=== PATIENT | female | born 1945 | race Caucasian/White ===

== ENCOUNTER 2016-11-27 20:22 | Emergency (ER) | payer OTHER ==
[~2016-11-27] VITALS: Ht 162.6 cm; Wt 89.8 kg
[~2016-11-27 20:22] MED LIST: ADVIN25050 INH; ALBUAER2 INH; LISI-461 PO; PRLSR20 PO; [UNRECOGNIZED DRUG - OTHER] PO
[2016-11-27 20:29] VITALS: TEMP 37; Ht 162.6 cm; Wt 89.8 kg
[2016-11-27] MEDS ORDERED: ATOR-22 PO (20:57)
[2016-11-27] MEDS ORDERED: NVLGI/PEN SQ (20:57)
[2016-11-27] MEDS ORDERED: INSDGIPEN SC (20:57)
--- NOTE | 2016-11-27 22:37 | DIAGNOSTIC IMAGING REPORT ---
CHEST ONE VIEW PORTABLE CLINICAL HISTORY: Fever. Sepsis. COMPARISON STUDY: Chest radiograph September 06, 2012. FINDINGS: No pneumothorax or pleural effusion is present. There is no evidence of pulmonary edema. There is an old fracture of the right eighth rib. Mild left lower lung opacity likely reflects atelectasis. Cardiac size is normal. Mediastinal contours are normal. IMPRESSION: 1. No acute cardiopulmonary findings. 2. Mild left lower lung opacity which favors atelectasis. Electronically signed by: Blanco Mckee M.D. 11/27/2016 10:35 PM Dictated Date/Time: 11/27/2016 10:34 PM
[2016-11-27 22:59] LABS: BASO % 0.4 %; BASO ABS # 0.04 K/uL (0-0.2); COMPLETE YES; EOS % 4.4 %; IG% 0.2 %; LYMPH % 32.6 %; LYMPH ABS # 3.26 K/uL (1.2-3.4); MEAN CELL VOLUME 84.5 fL (80-100); MEAN CORPUSCULAR HEMOGLOBIN 28.6 pg (25-34); MEAN CORPUSCULAR HGB CONC 33.9 g/dl (32-36); MEAN PLATELET VOLUME 9.7 fL (7.4-10.4); MONO % 6.3 %; NEUT % 56.1 %; PLATELET COUNT 261 K/uL (130-400); RED BLOOD COUNT 4.26 M/uL (4.2-5.4); WHITE BLOOD COUNT 9.99 K/uL (4.8-10.8)
[2016-11-27 23:04] LABS: PARTIAL THROMBOPLASTIN RATIO 1.1; PROTHROMBIN TIME (PATIENT) 10.4 SECONDS (9.0-12.0)
[2016-11-27 23:06] LABS: URINE APPEARANCE CLEAR (CLEAR); URINE BILIRUBIN NEG (NEG); URINE COLOR YELLOW; URINE EPITHELIAL CELL AUTO >30 /lpf (0-5); URINE NITRITE NEG (NEG); URINE SPECIFIC GRAVITY 1.014 (1.000-1.030); UROBILINOGEN NEG (NEG)
[2016-11-27 23:15] LABS: ALT/SGPT 23 U/L (12-78); BLOOD UREA NITROGEN 16 mg/dl (7-18); BUN/CREATININE RATIO 23.3 (10-20); CALCIUM 9.1 mg/dl (8.5-10.1); CARBON DIOXIDE 28 mmol/L (21-32); CHLORIDE 101 mmol/L (98-107); CREATININE 0.69 mg/dl (0.60-1.20); GLUCOSE 146 mg/dl (70-99); SODIUM 136 mmol/L (136-145)
[2016-11-27 23:20] LABS: ALKALINE PHOSPHATASE 92 U/L (45-117); AST/SGOT 13 U/L (15-37); CKMB/CK RATIO 5.2 (0-3.0)
[2016-11-27 23:25] LABS: MANUAL MICROSCOPIC REQUIRED? NO; REVIEW REQ? YES
--- NOTE | 2016-11-28 00:18 | EMERGENCY ROOM VISIT NOTE ---
History Report prepared by Josiahibterra: Elton Wright Under the Supervision of: Dr. Brandan Khna D.O. First contact with patient: 22:15 Chief Complaint: ARM PAIN Stated Complaint: RT SIDE ARM AND NECK PAIN, BASE OF SHOULDER PAIN History of Present Illness The patient is a 70 year old female who presents to the Emergency Room with complaints of constant right arm pain beginning a few hours ago. She states that the pain radiates down her arm as well as up into her shoulder and neck. She also complains of a cough. The patient denies any headaches, cold-symptoms, shortness of breath, or chest pain. She denies any known trauma or increased workload. Source of History: patient Onset: a few hours ago Position: arm (right) Timing: constant Associated Symptoms: + cough, No SOB, No chest pain, No headache Note: The patient has pain radiating down her arm as well as up to her shoulder and neck. Review of Systems See HPI for pertinent positives & negatives. A total of 10 systems reviewed and were otherwise negative. Past Medical & Surgical Medical Problems: (1) Diabetes Surgical Problems: (1) History of cholecystectomy Family History No pertinent family history stated. Social History Smoking Status: Never Smoker Alcohol Use: none Drug Use: none Marital Status: Occupation Status: retired Current/Historical Medications Scheduled Albuterol (Ventolin Hfa), 2 PUFFS INH PRN Atorvastatin (Lipitor), 20 MG PO QPM Insulin Aspart (Novolog Flexpen), 15-20 UNITS SQ TIDM Insulin Glargine (Lantus Solostar), 25 UNITS SC QPM Lisinopril (Zestril), 10 MG PO DAILY Allergies Coded Allergies: Doxycycline (Unverified Allergy, Mild, ASTHMA ATTACK, HIVES, 11/27/16) Penicillins (Verified Allergy, Unknown, 11/27/16) Sulfa Drugs (Verified Allergy, Unknown, 11/27/16) Physical Exam Vital Signs Date Time Temp Pulse Resp B/P Pulse Ox O2 Delivery O2 Flow Rate FiO2 11/28/16 00:25 71 18 141/75 98 Room Air 11/27/16 23:55 74 18 148/63 97 Room Air 11/27/16 22:48 68 18 151/81 97 Room Air 11/27/16 21:28 72 11/27/16 20:29 37.0 98 18 150/83 96 Room Air Physical Exam CONSTITUTIONAL/VITAL SIGNS: Reviewed / noted above. GENERAL: Non-toxic in appearance. INTEGUMENTARY: Warm, dry, and [place]. HEAD: Normocephalic. EYES: without scleral icterus or trauma. ENT/OROPHARYNX: clear and moist. LYMPHADENOPATHY/NECK: Is supple without lymphadenopathy or meningismus. RESPIRATORY: Lungs clear and equal. CARDIOVASCULAR: Regular rate and rhythm. GI/ABDOMEN: Soft and nontender. No organomegaly or pulsatile mass. No rebound or guarding. Normal bowel sounds. EXTREMITIES: Warm and well perfused. BACK: No CVA tenderness. NEUROLOGICAL: Intact without focal deficits. PSYCHIATRIC: normal affect. MUSCULOSKELETAL: Normally developed with good muscle tone. Mild tenderness with palpation of the right shoulder and trapezius area. Medical Decision & Procedures ER Provider Diagnostic Interpretation: X ray results and stated below per my interpretation and radiology interpretation. CHEST ONE VIEW PORTABLE FINDINGS: No pneumothorax or pleural effusion is present. There is no evidence of pulmonary edema. There is an old fracture of the right eighth rib. Mild left lower lung opacity likely reflects atelectasis. Cardiac size is normal. Mediastinal contours are normal. IMPRESSION: 1. No acute cardiopulmonary findings. 2. Mild left lower lung opacity which favors atelectasis. Electronically signed by: Blanco Mckee M.D. Laboratory Results 11/27/16 22:44 Red Blood Count 4.26, Mean Corpuscular Volume 84.5, Mean Corpuscular Hemoglobin 28.6, Mean Corpuscular Hemoglobin Concent 33.9, Mean Platelet Volume 9.7, Neutrophils (%) (Auto) 56.1, Lymphocytes (%) (Auto) 32.6, Monocytes (%) (Auto) 6.3, Eosinophils (%) (Auto) 4.4, Basophils (%) (Auto) 0.4, Neutrophils # (Auto) 5.60, Lymphocytes # (Auto) 3.26, Monocytes # (Auto) 0.63, Eosinophils # (Auto) 0.44, Basophils # (Auto) 0.04 11/27/16 22:44 Test 11/27/16 22:44 11/27/16 22:48 White Blood Count 9.99 K/uL (4.8-10.8) Red Blood Count 4.26 M/uL (4.2-5.4) Hemoglobin 12.2 g/dL (12.0-16.0) Hematocrit 36.0 % (37-47) Mean Corpuscular Volume 84.5 fL (80-100) Mean Corpuscular Hemoglobin 28.6 pg (25-34) Mean Corpuscular Hemoglobin Concent 33.9 g/dl (32-36) Platelet Count 261 K/uL (130-400) Mean Platelet Volume 9.7 fL (7.4-10.4) Neutrophils (%) (Auto) 56.1 % Lymphocytes (%) (Auto) 32.6 % Monocytes (%) (Auto) 6.3 % Eosinophils (%) (Auto) 4.4 % Basophils (%) (Auto) 0.4 % Neutrophils # (Auto) 5.60 K/uL (1.4-6.5) Lymphocytes # (Auto) 3.26 K/uL (1.2-3.4) Monocytes # (Auto) 0.63 K/uL (0.11-0.59) Eosinophils # (Auto) 0.44 K/uL (0-0.5) Basophils # (Auto) 0.04 K/uL (0-0.2) RDW Standard Deviation 42.9 fL (36.4-46.3) RDW Coefficient of Variation 14.0 % (11.5-14.5) Immature Granulocyte % (Auto) 0.2 % Immature Granulocyte # (Auto) 0.02 K/uL (0.00-0.02) Prothrombin Time 10.4 SECONDS (9.0-12.0) Prothromb Time International Ratio 1.0 (0.9-1.1) Activated Partial Thromboplast Time 29.6 SECONDS (21.0-31.0) Partial Thromboplastin Ratio 1.1 Anion Gap 7.0 mmol/L (3-11) Est Creatinine Clear Calc Drug Dose 80.0 ml/min Estimated GFR () 100.8 Estimated GFR (Non- 87.0 BUN/Creatinine Ratio 23.3 (10-20) Calcium Level 9.1 mg/dl (8.5-10.1) Total Bilirubin 0.4 mg/dl (0.2-1) Direct Bilirubin 0.1 mg/dl (0-0.2) Aspartate Amino Transf (AST/SGOT) 13 U/L (15-37) Alanine Aminotransferase (ALT/SGPT) 23 U/L (12-78) Alkaline Phosphatase 92 U/L (45-117) Total Creatine Kinase 33 U/L (26-192) Creatine Kinase MB 1.7 ng/ml (0.5-3.6) Creatine Kinase MB Ratio 5.2 (0-3.0) Troponin I < 0.015 ng/ml (0-0.045) Total Protein 7.4 gm/dl (6.4-8.2) Albumin 3.5 gm/dl (3.4-5.0) Lipase 224 U/L (73-393) Urine Color YELLOW Urine Appearance CLEAR (CLEAR) Urine pH 5.0 (4.5-7.5) Urine Specific [place] 1.014 (1.000-1.030) Urine Protein NEG (NEG) Urine Glucose (UA) NEG (NEG) Urine Ketones NEG (NEG) Urine Occult Blood NEG (NEG) Urine Nitrite NEG (NEG) Urine Bilirubin NEG (NEG) Urine Urobilinogen NEG (NEG) Urine Leukocyte Esterase LARGE (NEG) Urine WBC (Auto) >30 /hpf (0-5) Urine RBC (Auto) 0-4 /hpf (0-4) Urine Hyaline Casts (Auto) 1-5 /lpf (0-5) Urine Epithelial Cells (Auto) >30 /lpf (0-5) Urine Bacteria (Auto) NEG (NEG) Urine Renal Epithelial Cells 5-10 /lpf (0-5) Laboratory results as stated above per my review. ECG Indication: other (arm pain) Rate (beats per minute): 96 Rhythm: normal sinus Findings: no acute ischemic change, no ectopy Comparison ECG Date: March 2012 Change: no significant change ED Course 2217: Previous medical records were reviewed. The patient was evaluated in room B8. A complete history and physical examination was performed. 0020: On reevaluation, the patient is resting comfortably. I discussed the results and findings with the patient. She verbalized agreement of the treatment plan. The patient was discharged home. Medical Decision The differential was considered includes acute myocardial infarction, acute coronary syndrome, myocarditis, pericarditis, pericardial effusions/tamponade, esophageal perforation, thoracic aortic dissection, pulmonary embolism, pneumonia, pneumothorax, pancreatitis, shingles, acute cholecystitis, perforated abdominal viscus. This is a 70-year-old female who presents to the ED with a chief complaint of right shoulder and neck pain. The patient states that her symptoms started earlier this evening. She denies any specific trauma or overuse. She is right- handed. She denies any shortness of breath or chest pains. Her vital signs are normal. Her physical exam revealed some mild tenderness to palpation the right shoulder and right trapezius muscle near the shoulder. She was concerned about her heart. She states that she lives alone. Chest x-ray did not show acute disease. Urine did not show infection. A CMP was unremarkable. Troponin is negative. CBC is normal. The patient was told the results of the test. She is felt to be stable for discharge and outpatient follow-up. Impression Primary Impression: Right shoulder pain Scribe Attestation The scribe's documentation has been prepared under my direction and personally reviewed by me in its entirety. I confirm that the note above accurately reflects all work, treatment, procedures, and medical decision making performed by me. Departure Information Dispostion Home / Self-Care Referrals Kaylee Osorio D.O. (PCP) Patient Instructions My [facility] Additional Instructions The test results did not show any abnormalities with regards to your lungs are heart. Anticipate improvement of your symptoms with a little time. Take Tylenol / Motrin for pain as needed. Return for any concerns. If symptoms persist, see your doctor for recheck.
[2016-11-28 00:25] VITALS: BP 141/75; PULSE 71; O2SAT 98
== END 2016-11-28 00:40 | disposition home or self-care (01) ==
LOC: C.EDB 20:23
DX: M25.511 Pain in right shoulder (principal); E11.9 Type 2 diabetes mellitus without complications; Z90.49 Acquired absence of other specified parts of digestive tract; Z79.4 Long term (current) use of insulin; Z88.0 Allergy status to penicillin; Z88.2 Allergy status to sulfonamides

== ENCOUNTER 2021-08-29 23:12 | Observation (INO) ==
[2021-08-29] MEDS ORDERED: FAMOTIDINE 20MG/5ML IV PUSH IV STA (23:38)
[2021-08-29] MEDS ORDERED: ONDANSETRON INJ 2 MG/ML 2 ML VIAL IV STA (23:38)
[2021-08-29] MEDS ORDERED: SODIUM CHLORIDE 0.9% 1000ML 500 ML IV ONE (23:38)
--- NOTE | 2021-08-29 23:50 | Emergency Department Note ---
History of Present Illness General Chief complaint: Shortness of Breath/Dyspnea Stated complaint: SOB,NAUSEA,SWEATS COVID+ x 14 days Time Seen by Provider: 08/29/21 23:30 History of Present Illness This 75-year-old who had Covid 2 weeks ago presents to the ER complaining of nausea, chills and generalized illness to think she is having a heart attack tonight with shortness of breath who is unvaccinated for Covid and received monoclonal antibodies Location: Generalized Quality: Nauseated Severity: Moderate Duration: Today Timing: Today Context: Patient was concerned and came in Modifying factors: better with rest; worse with activity Patient states she started to feel ill and then had episode of diarrhea. Patient is unvaccinated for Covid. She states she felt better 2 days prior and now feels sick again. Patient complains of dyspnea, nausea and generalized illness. She states she does not feel like it is Covid anymore. Home Medications Medication Instructions Recorded Confirmed Type albuterol sulfate 90 mcg/actuation 2 puffs INH Q6H PRN #6.7 gm 04/26/19 08/30/21 Rx aerosol inhaler (ProAir HFA) omalizumab 150 mg subcutaneous 300 mg SQ Q4WK ea 05/09/19 08/30/21 History solution (Xolair) BD Insulin Syringe Ultra-Fine 0.5 #100 ea NS 01/03/20 02/17/21 Rx mL 31 gauge x 5/16" (insulin syringe-needle U-100) pen needle, diabetic 31 gauge x #360 ea 01/21/20 05/27/21 Rx 3/16" (BD Ultra-Fine Mini Pen Needle) lisinopril 10 mg tablet 10 mg PO DAILY #90 tab 04/10/20 08/30/21 Rx lancets 32 gauge #300 ea 04/27/20 05/27/21 Rx blood sugar diagnostic (FreeStyle #400 ea 07/13/20 05/27/21 Rx Lite Strips) insulin glargine 100 unit/mL (3 28 unit SQ DAILY #2 box 05/28/21 08/30/21 Rx mL) subcutaneous pen (Basaglar KwikPen U-100 Insulin) metoprolol succinate 25 mg 25 mg PO DAILY #90 tab 06/29/21 08/30/21 Rx tablet,extended release 24 hr rosuvastatin 5 mg tablet (Crestor) 5 mg PO DAILY #90 tab 06/29/21 08/30/21 Rx cefdinir 300 mg capsule 300 mg PO BID 7 Days #14 cap 08/30/21 Rx celecoxib 200 mg capsule 200 mg PO DAILY 08/30/21 08/30/21 History cholecalciferol (vitamin D3) 25 50 - 75 mcg PO DAILY 08/30/21 08/30/21 History mcg (1,000 unit) capsule (Vitamin D3) cinnamon bark 500 mg capsule 2,000 mg PO DAILY 08/30/21 08/30/21 History (Cinnamon) clobetasol 0.05 % topical ointment 1 appln TOP BID PRN 08/30/21 08/30/21 History cranberry 500 mg capsule 1,500 mg PO DAILY 08/30/21 08/30/21 History diphenoxylate-atropine 2.5 1 tab PO DIRECTED PRN 08/30/21 08/30/21 History mg-0.025 mg tablet (Lomotil) estradiol 4 mcg vaginal insert 4 mcg VAGINAL DIRECTED PRN 08/30/21 08/30/21 History (Imvexxy Maintenance Pack) insulin aspart U-100 100 unit/mL 0 unit SQ DIRECTED 08/30/21 08/30/21 History (3 mL) subcutaneous pen (Novolog Flexpen U-100 Insulin aspart) vitamin B complex 1 - 2 tab PO DAILY 08/30/21 08/30/21 History zinc 50 mg tablet 50 mg PO DAILY 08/30/21 08/30/21 History Allergies Allergy/AdvReac Type Severity Reaction Status Date / Time doxycycline Allergy Severe ASTHMA Verified 08/30/21 01:25 ATTACK, HIVES Sulfa (Sulfonamide Allergy Severe SWELLING Verified 08/30/21 01:25 Antibiotics) AND REDNESS, EYES SWELLED latex Allergy Intermediate SKIN Verified 08/30/21 01:25 IRRITATION-RASH atorvastatin AdvReac Intermediate Muscle Pain Verified 08/30/21 01:25 metformin AdvReac Intermediate Gastrointestinal Verified 08/30/21 01:19 Upset Past Med/Surg History Medical History Aortic valve sclerosis CAD (coronary artery disease) Dyslipidemia Hypertension Obstructive airway disease Type 2 diabetes mellitus Surgical History History of appendectomy History of cholecystectomy History of knee surgery History of lumpectomy Family History Father Asthma Bronchitis Diabetes Coronary heart disease Mother Arthritis Cancer Coronary heart disease Hypertension Stroke Social History Smoking Status: Never smoker Hx Alcohol Use: No Preferred Language: Indian marital status: Feels Safe at Home: Yes Review of Systems A total of 10 systems reviewed and were otherwise negative Physical Exam Vital Signs Vital Signs - 24 hr 08/29/21 23:20 08/29/21 23:45 08/29/21 23:46 Temperature 36.4 C L Temperature Source Oral Pulse Rate 66 Pulse Rate [Apical] Respiratory Rate 18 Respiratory Effort / Characteristics Non-Labored Spontaneous Respiratory Depth Normal Blood Pressure 147/68 H Blood Pressure [Right Arm] Blood Pressure Mean 94 Blood Pressure Mean [Right Arm] Blood Pressure Position Sitting Pulse Oximetry 96 96 Oxygen Delivery Method Room Air Room Air Room Air Sepsis Recent Fever Within 48 Hours No Sepsis New/Unexplained Change in Mental Status N/A Sepsis Action Taken by Nursing No Action Required 08/29/21 23:50 08/30/21 00:13 08/30/21 01:44 Temperature Temperature Source Pulse Rate Pulse Rate [Apical] 73 79 Respiratory Rate 22 19 Respiratory Effort / Characteristics Non-Labored Spontaneous Respiratory Depth Blood Pressure Blood Pressure [Right Arm] 130/51 L 151/93 H Blood Pressure Mean Blood Pressure Mean [Right Arm] 77 112 Blood Pressure Position Pulse Oximetry 97 98 97 Oxygen Delivery Method Room Air Room Air Room Air Sepsis Recent Fever Within 48 Hours Sepsis New/Unexplained Change in Mental Status Sepsis Action Taken by Nursing 08/30/21 02:30 Temperature Temperature Source Pulse Rate 71 Pulse Rate [Apical] Respiratory Rate 24 Respiratory Effort / Characteristics Respiratory Depth Blood Pressure 143/88 H Blood Pressure [Right Arm] Blood Pressure Mean 106 Blood Pressure Mean [Right Arm] Blood Pressure Position Pulse Oximetry 95 Oxygen Delivery Method Room Air Sepsis Recent Fever Within 48 Hours Sepsis New/Unexplained Change in Mental Status Sepsis Action Taken by Nursing VITALS: Vitals are noted on the nurse's note and reviewed by myself. Vital signs stable. GENERAL: White female speaking in full sentences, in no acute distress, nond iaphoretic, well-developed well-nourished. SKIN: The skin was without rashes, erythema, edema, or bruising. There is no tenting of the skin. Capillary reflex less than 2 seconds. HEAD: Normocephalic atraumatic. EARS: External auditory canals clear, EYES: Pupils equal round and reactive to light and accommodation. Conjunctivae without injection, sclerae without icterus. Extraocular movements intact. NOSE: Patent, turbinates without inflammation or discharge. MOUTH: Mucous membranes moist. Pharynx without erythema or exudate. Uvula midline. Airway patent. Tongue does not deviate. NECK: Supple without nuchal rigidity. No lymphadenopathy. No thyromegaly. Cervical spine is nontender. No JVD. HEART: Regular rate and rhythm LUNGS: Clear to auscultation bilaterally without wheezes, rales or rhonchi. No retractions or accessory muscle use. ABDOMEN: Positive bowel sounds x 4. Normal tympanic percussion. Soft, nontender, without masses or organomegaly. Regalado sign negative. No guarding or rebound tenderness. No CVA tenderness MUSCULOSKELETAL: No muscle atrophy, erythema, or edema noted. NEURO: Patient was alert and oriented to person place and time. Normal sens ation to light and sharp touch. No focal neurological deficits. Course Administered Medications Discontinued Medications Famotidine (Famotidine 20mg/5ml Iv Push) 20 mg IV ONE STA Stop: 08/29/21 23:39 Last Admin: 08/30/21 00:11 Dose: 20 mg Documented by: [id number] Sodium Chloride (Nss 1000ml) 500 mls @ 999 mls/hr IV .Q31M ONE Stop: 08/30/21 00:08 Last Infusion: 08/30/21 01:22 Dose: 0 mls/hr Documented by: [id number] Admin: 08/30/21 00:13 Dose: 999 mls/hr Documented by: [id number] Ceftriaxone Sodium (Rocephin) 2,000 mg in 70 mls @ 140 mls/hr IV NOW STA Stop: 08/30/21 02:54 Last Infusion: 08/30/21 03:03 Dose: 0 mls/hr Documented by: [id number] Admin: 08/30/21 02:32 Dose: 140 mls/hr Documented by: [id number] Ioversol (Optiray 320 125ml) 119 ml IV ONCE ONE Stop: 08/30/21 01:14 Last Admin: 08/30/21 01:14 Dose: 119 ml Documented by: [id number] Ondansetron HCl (Ondansetron Inj 2 Mg/Ml 2 Ml Vial) 4 mg IV NOW STA Stop: 08/29/21 23:39 Last Admin: 08/30/21 00:13 Dose: Not Given Documented by: [id number] Medical Decision Making Medical Records Attestation: I reviewed the patient's medical records. Home Medications Current Medication List: was personally reviewed by [email or web address] Laboratory Data Attestation: I reviewed the patient's lab results. Result diagrams: 08/30/21 00:10 08/30/21 00:10 Lab Results 08/30/21 08/30/21 08/30/21 Range/Units 00:10 00:10 00:10 WBC 8.29 (4.8-10.8) K/uL RBC 4.25 (4.2-5.4) M/uL Hgb 12.5 (12.0-16.0) g/dL Hct 38.3 (37-47) % MCV 90.1 (80-100) fL MCH 29.4 (25-34) pg MCHC 32.6 (32-36) g/dL RDW Std Deviation 42.9 (36.4-46.3) fL RDW Coeff of Marek 13.1 (11.5-14.5) % Plt Count 242 (130-400) K/uL MPV 10.4 (7.4-10.4) fL Immature Gran % (Auto) 0.2 % Neut % (Auto) 67.6 % Lymph % (Auto) 22.6 % Pender % (Auto) 8.0 % Eos % (Auto) 1.2 % Baso % (Auto) 0.4 % Neut # (Auto) 5.61 (1.4-6.5) K/uL Lymph # (Auto) 1.87 (1.2-3.4) K/uL Pender # (Auto) 0.66 H (0.11-0.59) K/uL Eos # (Auto) 0.10 (0-0.5) K/uL Baso # (Auto) 0.03 (0-0.2) K/uL Immature Gran # (Auto) 0.02 (0.00-0.02) K/uL Sodium 142 (136-145) mmol/L Potassium 4.2 (3.5-5.1) mmol/L Chloride 107 (98-107) mmol/L Carbon Dioxide 26 (21-32) mmol/L Anion Gap 10.0 (3-11) BUN 19 H (7-18) mg/dl Creatinine 1.08 (0.6-1.2) mg/dl Est Cr Clr Drug Dosing 47.1 ml/min Est GFR ( Amer) 57.3 ml/min Est GFR (Non-Af Amer) 49.5 ml/min BUN/Creatinine Ratio 17.4 (10-20) Glucose 200 H (70-99) mg/dl Lactate (0.4-2.0) mmol/L Calcium 9.3 (8.5-10.1) mg/dl Magnesium 2.1 (1.8-2.4) mg/dl Total Bilirubin 0.4 (0.2-1) mg/dl AST 66 H (15-37) U/L ALT 67 (12-78) U/L Alkaline Phosphatase 93 (45-117) U/L Troponin I < 0.015 (0-0.045) ng/ml NT-Pro-B Natriuret Pep 314 (0-1800) pg/ml Total Protein 7.7 (6.4-8.2) gm/dl Albumin 3.5 (3.4-5.0) gm/dl Globulin 4.2 H (2.5-4.0) gm/dl Albumin/Globulin Ratio 0.8 L (0.9-2) Procalcitonin < 0.05 (0-0.5) ng/ml Urine Color Urine Appearance (Clear) Urine pH (4.5-7.5) Ur Specific [place] (1.000-1.030) Urine Protein (Negative) Urine Glucose (UA) (Negative) Urine Ketones (Negative) Urine Blood (Negative) Urine Nitrite (Negative) Urine Bilirubin (Negative) Urine Urobilinogen (Negative) Ur Leukocyte Esterase (Negative) Urine WBC (Auto) (0-5) /hpf Urine RBC (Auto) (0-4) /hpf U Hyaline Cast (Auto) (0-5) /lpf U Epithel Cells (Auto) (0-5) /lpf Urine Bacteria (Auto) (Negative) 08/30/21 08/30/21 08/30/21 Range/Units 00:10 01:40 02:00 WBC (4.8-10.8) K/uL RBC (4.2-5.4) M/uL Hgb (12.0-16.0) g/dL Hct (37-47) % MCV (80-100) fL MCH (25-34) pg MCHC (32-36) g/dL RDW Std Deviation (36.4-46.3) fL RDW Coeff of Marek (11.5-14.5) % Plt Count (130-400) K/uL MPV (7.4-10.4) fL Immature Gran % (Auto) % Neut % (Auto) % Lymph % (Auto) % Pender % (Auto) % Eos % (Auto) % Baso % (Auto) % Neut # (Auto) (1.4-6.5) K/uL Lymph # (Auto) (1.2-3.4) K/uL Pender # (Auto) (0.11-0.59) K/uL Eos # (Auto) (0-0.5) K/uL Baso # (Auto) (0-0.2) K/uL Immature Gran # (Auto) (0.00-0.02) K/uL Sodium (136-145) mmol/L Potassium (3.5-5.1) mmol/L Chloride (98-107) mmol/L Carbon Dioxide (21-32) mmol/L Anion Gap (3-11) BUN (7-18) mg/dl Creatinine (0.6-1.2) mg/dl Est Cr Clr Drug Dosing ml/min Est GFR ( Amer) ml/min Est GFR (Non-Af Amer) ml/min BUN/Creatinine Ratio (10-20) Glucose (70-99) mg/dl Lactate 2.2 H* 1.4 (0.4-2.0) mmol/L Calcium (8.5-10.1) mg/dl Magnesium (1.8-2.4) mg/dl Total Bilirubin (0.2-1) mg/dl AST (15-37) U/L ALT (12-78) U/L Alkaline Phosphatase (45-117) U/L Troponin I (0-0.045) ng/ml NT-Pro-B Natriuret Pep (0-1800) pg/ml Total Protein (6.4-8.2) gm/dl Albumin (3.4-5.0) gm/dl Globulin (2.5-4.0) gm/dl Albumin/Globulin Ratio (0.9-2) Procalcitonin (0-0.5) ng/ml Urine Color Yellow Urine Appearance Clear (Clear) Urine pH 7.0 (4.5-7.5) Ur Specific [place] 1.017 (1.000-1.030) Urine Protein 2+ H (Negative) Urine Glucose (UA) Trace H (Negative) Urine Ketones Negative (Negative) Urine Blood Negative (Negative) Urine Nitrite Negative (Negative) Urine Bilirubin Negative (Negative) Urine Urobilinogen Negative (Negative) Ur Leukocyte Esterase 1+ H (Negative) Urine WBC (Auto) >30 H (0-5) /hpf Urine RBC (Auto) 0-4 (0-4) /hpf U Hyaline Cast (Auto) 10-30 H (0-5) /lpf U Epithel Cells (Auto) 20-30 H (0-5) /lpf Urine Bacteria (Auto) 4+ H (Negative) Imaging Data Attestation: I personally reviewed and interpreted this imaging study as follows: MDM Narrative Prior records/ancillary studies reviewed and summarized above. Nursing notes reviewed. Additional history obtained from nursing. The patient's history was concerning for nausea and generalized illness. Differential diagnosis: Etiologies such as metabolic, infection, hypo/hyperglycemia, electrolyte abnormalities, cardiac sources, intracerebral event, toxicologic, neurologic, as well as others were entertained. Physical examination: As above. ER treatment provided: IV Lock An order was placed for continuous cardiac monitoring. The monitor shows a rate of 60-100 with a sinus rhythm. IV fluids, Zofran, Pepcid On reassessment the patient felt better. Diagnostics interpretation by me: ECG: Ordered for weakness EKG: Normal sinus, left axis, right bundle, no new ST-T wave changes. Impression left axis deviation right bundle branch block sinus rhythm int erpreted by myself I think arrhythmia is unlikely. EKG shows no interval abnormalities such as QT prolongation or WPW. There are no findings to suggest Brugada syndrome. Cardiac monitoring in the emergency department reveals no tachycardic or bradycardic dysrhythmia. Hypertrophic cardiomyopathy was considered but there are no clear historical elements pointing toward this. EKG is not suggestive. The QRS voltage is not extremely large and there are no suggestive Q waves. The labs revealed initial lactic slightly elevated, repeat is improved urine concerning for infection sent for culture. No prior urine culture for review Positive Covid from the other day Imaging studies: CTA CHEST: No pulmonary embolus. No aortic aneurysm or dissection. Interstitial prominence is concerning for pulmonary edema. The lungs are otherwise clear. Heart size is normal. No pathologically enlarged lymph nodes. No fracture. Radiologist: Shena Chacon MD Consultation: A consultation was placed with the hospitalist. The case was discussed and diagnostics were reviewed. The patient was evaluated in the ER for further treatment. Exam and history seem consistent with UTI and pulmonary edema with ongoing covid. She was given Rocephin. The pulmonary edema is new per the patient. Nothing in chart review. Patient is agreeable to treatment plan admission. Medicine was consulted. By the evaluation outlined above emergent etiologies such as electrolyte abnormalities, intracerebral event, toxologic, neurologic, abnormalities blood glucose, metabolic, as well as others were deemed relatively unlikely. The pt informed about the findings as listed above. All questions were answered and pleased with the treatment. The chart was completed utilizing [employer] Speech voice recognition software. Grammatical errors, random word insertions, pronoun errors, and incomplete sentences are an occassional consequence of this system due to software limitations, ambient noise, and hardware issues. Any formal questions or c oncerns about the content, text, or information contained within the body of this dictation should be directly addressed to the physician office services assistant for clarification. Impression & Plan Acute UTI, Pulmonary edema Discharge Plan Visit Data Chief Complaint: Shortness of Breath/Dyspnea Stated Complaint: SOB,NAUSEA,SWEATS COVID+ x 14 days ED Provider: Sabi Martinez ED Midlevel Provider: Tanvi Auguste Discharge Problem: Acute UTI, Pulmonary edema Patient Disposition: Admitted As Inpatient Condition: Good Discharge Instructions Activity Restrictions/Additional Instructions: Forms Stand Alone Forms: [employer] Prescriptions Prescriptions: New cefdinir 300 mg capsule 300 mg PO BID 7 Days Qty: 14 RF: 0 No Action albuterol sulfate [ProAir HFA] 90 mcg/actuation HFA aerosol inhaler 2 puffs INH Q6H PRN (Reason: shortness of breath or wheezing) Qty: 6.7 RF: 0 (DME) insulin syringe-needle U-100 [BD Insulin Syringe Ultra-Fine] 0.5 mL 31 gauge x 5/16" syringe See Rx Instructions .ROUTE .MEDSUPPLY Qty: 100 RF: 3 (DME) pen needle, diabetic [BD Ultra-Fine Mini Pen Needle] 31 gauge x 3/16" needle See Rx Instructions .ROUTE .MEDSUPPLY Qty: 360 RF: 3 lisinopril 10 mg tablet 10 mg PO DAILY Qty: 90 RF: 3 (DME) lancets 32 gauge misc See Rx Instructions .ROUTE .MEDSUPPLY Qty: 300 RF: 3 (DME) FreeStyle Lite Strips Strip See Dose Instructions .ROUTE .MEDSUPPLY Qty: 400 RF: 3 metoprolol succinate 25 mg tablet extended release 24 hr 25 mg PO DAILY Qty: 90 RF: 3 rosuvastatin [Crestor] 5 mg tablet 5 mg PO DAILY Qty: 90 RF: 3 Xolair 150 mg recon soln 300 mg SQ Q4WK RF: 0 Basaglar KwikPen U-100 Insulin 100 unit/mL (3 mL) insulin pen 28 unit SQ DAILY Qty: 2 RF: 3 diphenoxylate-atropine [Lomotil] 2.5-0.025 mg Tablet 1 tab PO DIRECTED PRN (Reason: Diarrhea) RF: 0 vitamin B complex [Super B Complex] Tablet 1 - 2 tab PO DAILY RF: 0 zinc 50 mg Tablet 50 mg PO DAILY RF: 0 cranberry 500 mg Capsule 1,500 mg PO DAILY RF: 0 cholecalciferol (vitamin D3) [Vitamin D3] 25 mcg (1,000 unit) Capsule 50 - 75 mcg PO DAILY RF: 0 cinnamon bark [Cinnamon] 500 mg Capsule 2,000 mg PO DAILY RF: 0 celecoxib 200 mg capsule 200 mg PO DAILY RF: 0 clobetasol 0.05 % ointment 1 appln TOP BID PRN (Reason: SKIN IRRITATIONS) RF: 0 insulin aspart U-100 [Novolog Flexpen U-100 Insulin] 100 unit/mL (3 mL) insuli n pen 0 unit SQ DIRECTED RF: 0 Imvexxy Maintenance Pack 4 mcg insert 4 mcg VAGINAL DIRECTED PRN (Reason: Sexual Activity) RF: 0 Referrals Referrals: Kaylee Osorio DO [Primary Care Provider] -
[2021-08-30 00:23] LABS: Basophils # (auto) 0.03 K/uL (0-0.2); Basophils % (auto) 0.4 %; Eosinophils % (auto) 1.2 %; Hematocrit (blood only) 38.3 % (37-47); Hemoglobin 12.5 g/dL (12.0-16.0); Immature Granulocytes # (auto) 0.02 K/uL (0.00-0.02); Immature Granulocytes % (auto) 0.2 %; Lymphocytes # (auto) 1.87 K/uL (1.2-3.4); Lymphocytes % (auto) 22.6 %; Mean Corpuscular Hemoglobin 29.4 pg (25-34); Mean Corpuscular Hgb Conc 32.6 g/dL (32-36); Mean Corpuscular Volume 90.1 fL (80-100); Mean Platelet Volume 10.4 fL (7.4-10.4); Monocytes # (auto) 0.66 K/uL (0.11-0.59); Neutrophils # (auto) 5.61 K/uL (1.4-6.5); Neutrophils % (auto) 67.6 %; Platelet Count 242 K/uL (130-400); RDW Coefficient of Variation 13.1 % (11.5-14.5); RDW Standard Deviation 42.9 fL (36.4-46.3); Red Blood Count 4.25 M/uL (4.2-5.4); White Blood Count 8.29 K/uL (4.8-10.8)
[2021-08-30 00:42] LABS: Alanine Aminotransferase 67 U/L (12-78); Albumin Level 3.5 gm/dl (3.4-5.0); Aspartate Aminotransferase 66 U/L (15-37); BUN Creatinine Ratio 17.4 (10-20); Blood Urea Nitrogen 19 mg/dl (7-18); Calcium 9.3 mg/dl (8.5-10.1); Carbon Dioxide 26 mmol/L (21-32); Chloride 107 mmol/L (98-107); Creatinine Clr Calc Pharmacy 47.1 ml/min; Est GFR (African American) 57.3 ml/min; Est GFR (Non-African American) 49.5 ml/min; Glucose 200 mg/dl (70-99); Magnesium 2.1 mg/dl (1.8-2.4); Potassium 4.2 mmol/L (3.5-5.1); Sodium 142 mmol/L (136-145)
[2021-08-30 00:47] LABS: Albumin Globulin Ratio 0.8 (0.9-2); Alkaline Phosphatase 93 U/L (45-117); Bilirubin,Total 0.4 mg/dl (0.2-1); Globulin 4.2 gm/dl (2.5-4.0); NT Pro B Type Natriuretic Pept 314 pg/ml (0-1800); Total Protein 7.7 gm/dl (6.4-8.2); Troponin I < 0.015 ng/ml (0-0.045)
[2021-08-30] MEDS ORDERED: OPTIRAY 320 125ml IV ONE (01:13)
[2021-08-30 02:00] LABS: Appearance Urine Clear (Clear); Bacteria Urine Automated 4+ (Negative); Bilirubin Urine Negative (Negative); Blood Urine Negative (Negative); Color Urine Yellow; Epithelial Cell Urine Auto 20-30 /lpf (0-5); Glucose Urine UA Trace (Negative); Ketones Urine Negative (Negative); Leukocyte Esterase Urine 1+ (Negative); Nitrite Urine Negative (Negative); Protein Urine 2+ (Negative); RBC Urine Automated 0-4 /hpf (0-4); Specific Gravity Urine 1.017 (1.000-1.030); Urobilinogen Urine Negative (Negative); WBC Urine Automated >30 /hpf (0-5)
[2021-08-30] MEDS ORDERED: cefTRIAXone SODIUM 2,000 MG/70 ML BAG IV STA (02:25)
--- NOTE | 2021-08-30 03:50 | History & Physical Report ---
Date of Service August 30, 2021 Assessment & Plan (1) Acute UTI: Plan: Acute on chronic UTI- Follow urine culture and sensitivities Was given ceftriaxone 2 g IV in ED, and this will be continued daily NSS + KCl 20 mEq at 80 mils per hour x1 L Zofran 4 mg IV every 6 hours as needed Acetaminophen 650 mg p.o. every 6 hours as needed mild pain or fever (2) COVID-19: Plan: COVID-19 infection/obstructive airways disease/moderate persistent asthma- Patient symptoms initially began on 08/17, had testing performed on 08/20, and received positive results on 08/21. For a few days that she did have increased shortness of breath and dyspnea on exertion above her baseline, but afterwards has returned toward her usual dyspnea on exertion symptoms. Continue her usual vitamin D and zinc (3) Moderate persistent asthma: Plan: Moderate persistent asthma/obstructive airways disease- Patient ports being back to baseline symptoms after recovering from COVID-19 exacerbation of symptoms. Hold the albuterol HFA due to shortage DuoNebs every 2 hours as needed Receives omalizumab injection every 4 weeks as an outpatient (4) Obstructive airway disease: Plan: See above (5) Type 2 diabetes mellitus: Plan: Continue insulin glargine [address] on Accu-Cheks before meals and at bedtime with NovoLog coverage per scale Check hemoglobin A1c (6) CAD (coronary artery disease): Plan: CAD/hypertension- Continue metoprolol succinate 25 mg p.o. daily Hold lisinopril (7) Hypertension: Plan: See above (8) Dyslipidemia: Plan: Continue rosuvastatin 5 mg daily History of Present Illness Chief Complaint: The patient presents to the emergency department with complaint of shortness of breath, dyspnea on exertion worse than her baseline, that began on 08/17/21. She called her PCPs office, got a COVID-19 test on 08/20, and received a report of it being positive on 08/21. The patient had been on cefdinir, and continued to take her usual albuterol HFA, and her breathing symptoms are now back to her baseline COPD. She reports having symptoms of urinary frequency and urgency for the past year, and more recently has increased her cranberry juice to 3 times daily to help combat the symptoms. She also reports being very fatigued. The patient reports that she had at 5:30 this evening, and then after that realized that she was not feeling well in general, she went to bed at 830, woke up, and as her put her on the edge of the bed, she felt lightheaded, dizzy, and had sweats, similar to what she experienced with low blood sugar, however, her sugar was 180 at that time Primary Care Provider: Kaylee Osorio DO The patient is a 75-year-old female with a past medical history including chronic idiopathic urticaria, moderate persistent asthma, aortic valve sclerosis, COPD, diabetes mellitus, dyslipidemia, hypertension and CAD. She presents with symptoms as noted above. Her COVID-19 test was not repeated this evening, although she was to require COVID-19 precautions. Urinalysis was suggestive of UTI. Chest x-ray was normal. Pulse ox was 95-98% on room air From the ED patient received: Ceftriaxone 2 g IV, famotidine 20 mg IV, normal saline 500 mils and Zofran 4 mg IV. Allergies Allergy/AdvReac Type Severity Reaction Status Date / Time doxycycline Allergy Severe ASTHMA Verified 08/30/21 01:25 ATTACK, HIVES Sulfa (Sulfonamide Allergy Severe SWELLING Verified 08/30/21 01:25 Antibiotics) AND REDNESS, EYES SWELLED latex Allergy Intermediate SKIN Verified 08/30/21 01:25 IRRITATION-RASH atorvastatin AdvReac Intermediate Muscle Pain Verified 08/30/21 01:25 metformin AdvReac Intermediate Gastrointestinal Verified 08/30/21 01:19 Upset Home Medications Medication Instructions Recorded Confirmed Type albuterol sulfate 90 mcg/actuation 2 puffs INH Q6H PRN #6.7 gm 04/26/19 08/30/21 Rx aerosol inhaler (ProAir HFA) omalizumab 150 mg subcutaneous 300 mg SQ Q4WK ea 05/09/19 08/30/21 History solution (Xolair) BD Insulin Syringe Ultra-Fine 0.5 #100 ea NS 01/03/20 02/17/21 Rx mL 31 gauge x 5/16" (insulin syringe-needle U-100) pen needle, diabetic 31 gauge x #360 ea 01/21/20 05/27/21 Rx 3/16" (BD Ultra-Fine Mini Pen Needle) lisinopril 10 mg tablet 10 mg PO DAILY #90 tab 04/10/20 08/30/21 Rx lancets 32 gauge #300 ea 04/27/20 05/27/21 Rx blood sugar diagnostic (FreeStyle #400 ea 07/13/20 05/27/21 Rx Lite Strips) insulin glargine 100 unit/mL (3 28 unit SQ DAILY #2 box 05/28/21 08/30/21 Rx mL) subcutaneous pen (Basaglar KwikPen U-100 Insulin) metoprolol succinate 25 mg 25 mg PO DAILY #90 tab 06/29/21 08/30/21 Rx tablet,extended release 24 hr rosuvastatin 5 mg tablet (Crestor) 5 mg PO DAILY #90 tab 06/29/21 08/30/21 Rx cefdinir 300 mg capsule 300 mg PO BID 7 Days #14 cap 08/30/21 Rx celecoxib 200 mg capsule 200 mg PO DAILY 08/30/21 08/30/21 History cholecalciferol (vitamin D3) 25 50 - 75 mcg PO DAILY 08/30/21 08/30/21 History mcg (1,000 unit) capsule (Vitamin D3) cinnamon bark 500 mg capsule 2,000 mg PO DAILY 08/30/21 08/30/21 History (Cinnamon) clobetasol 0.05 % topical ointment 1 appln TOP BID PRN 08/30/21 08/30/21 History cranberry 500 mg capsule 1,500 mg PO DAILY 08/30/21 08/30/21 History diphenoxylate-atropine 2.5 1 tab PO DIRECTED PRN 08/30/21 08/30/21 History mg-0.025 mg tablet (Lomotil) estradiol 4 mcg vaginal insert 4 mcg VAGINAL DIRECTED PRN 08/30/21 08/30/21 History (Imvexxy Maintenance Pack) insulin aspart U-100 100 unit/mL 0 unit SQ DIRECTED 08/30/21 08/30/21 History (3 mL) subcutaneous pen (Novolog Flexpen U-100 Insulin aspart) vitamin B complex 1 - 2 tab PO DAILY 08/30/21 08/30/21 History zinc 50 mg tablet 50 mg PO DAILY 08/30/21 08/30/21 History Past Med/Surg History Medical History (Updated 08/30/21 @ 04:07 by Luis Mckeon MD) Aortic valve sclerosis CAD (coronary artery disease) Dyslipidemia Hypertension Obstructive airway disease Type 2 diabetes mellitus Surgical History History of appendectomy History of cholecystectomy History of knee surgery History of lumpectomy Family History Father Asthma Bronchitis Diabetes Coronary heart disease Mother Arthritis Cancer Coronary heart disease Hypertension Stroke Social History Smoking Status: Never smoker Hx Alcohol Use: No Preferred Language: Portuguese marital status: Feels Safe at Home: Yes Review of Systems Review of Systems: The patient denies chest pain, palpitations, cough, lower extremity swelling, sore throat, fevers, chills, sweats, nausea, vomiting, diarrhea , constipation, abdominal pain, pelvic pain, blood in urine or stool, dysuria, urinary frequency or urgency, lightheadedness, dizziness, headache, memory loss, loss of consciousness, rash, abnormal bruising or bleeding, imbalance, focal weakness, numbness or tingling in arms or legs, generalized arthralgias or myalgias, back or neck pain, or night sweats. The review of systems is otherwise negative other than for that already noted above, and at least 10 systems have been reviewed. Physical Exam Physical Exam: The patient is awake, alert and oriented 3, well developed and well nourished, normocephalic and atraumatic, lying in bed and in no acute distress. HEENT--PERRL, EOMI, mucous membranes and oropharynx mildly dry. Neck--supple. No JVD. No bruits. Thyroid normal, trachea midline, no adenopathy. Heart--normal S1 and S2. No murmurs, rubs or gallops. Lungs--clear bilaterally, no respiratory distress, no accessory muscle use. Abdomen--normal bowel sounds and soft. Nontender. Nondistended, no hernias or masses, no organomegaly. Extremities--no cyanosis or clubbing. No edema. Dermatologic--normal skin turgor, normal color, no abnormal lymph nodes, no rash. Neurologic--cranial nerves II through XII grossly intact. Rheumatologic--normal range of motion. Psychiatric--normal affect. Results & Data Results & Data ([facility]) Vital Signs (Past 12 Hours) Vital Signs Temp Pulse Pulse Resp BP BP Pulse Ox 08/30/21 02:30 71 24 143/88 H 95 08/30/21 01:44 79 19 151/93 H 97 08/30/21 00:13 73 22 130/51 L 98 08/29/21 23:50 97 08/29/21 23:45 96 08/29/21 23:20 36.4 C L 66 18 147/68 H 96 Laboratory Results Laboratory Results WBC 8.29 K/uL (4.8-10.8) 08/30/21 00:10 RBC 4.25 M/uL (4.2-5.4) 08/30/21 00:10 Hgb 12.5 g/dL (12.0-16.0) 08/30/21 00:10 Hct 38.3 % (37-47) 08/30/21 00:10 MCV 90.1 fL (80-100) 08/30/21 00:10 MCH 29.4 pg (25-34) 08/30/21 00:10 MCHC 32.6 g/dL (32-36) 08/30/21 00:10 RDW Std Deviation 42.9 fL (36.4-46.3) 08/30/21 00:10 RDW Coeff of Marek 13.1 % (11.5-14.5) 08/30/21 00:10 Plt Count 242 K/uL (130-400) 08/30/21 00:10 MPV 10.4 fL (7.4-10.4) 08/30/21 00:10 Immature Gran % (Auto) 0.2 % 08/30/21 00:10 Neut % (Auto) 67.6 % 08/30/21 00:10 Lymph % (Auto) 22.6 % 08/30/21 00:10 Boyle % (Auto) 8.0 % 08/30/21 00:10 Eos % (Auto) 1.2 % 08/30/21 00:10 Baso % (Auto) 0.4 % 08/30/21 00:10 Neut # (Auto) 5.61 K/uL (1.4-6.5) 08/30/21 00:10 Lymph # (Auto) 1.87 K/uL (1.2-3.4) 08/30/21 00:10 Boyle # (Auto) 0.66 K/uL (0.11-0.59) H 08/30/21 00:10 Eos # (Auto) 0.10 K/uL (0-0.5) 08/30/21 00:10 Baso # (Auto) 0.03 K/uL (0-0.2) 08/30/21 00:10 Immature Gran # (Auto) 0.02 K/uL (0.00-0.02) 08/30/21 00:10 Sodium 142 mmol/L (136-145) 08/30/21 00:10 Potassium 4.2 mmol/L (3.5-5.1) 08/30/21 00:10 Chloride 107 mmol/L (98-107) 08/30/21 00:10 Carbon Dioxide 26 mmol/L (21-32) 08/30/21 00:10 Anion Gap 10.0 (3-11) 08/30/21 00:10 BUN 19 mg/dl (7-18) H 08/30/21 00:10 Creatinine 1.08 mg/dl (0.6-1.2) 08/30/21 00:10 Est Cr Clr Drug Dosing 47.1 ml/min 08/30/21 00:10 Est GFR ( Amer) 57.3 ml/min 08/30/21 00:10 Est GFR (Non-Af Amer) 49.5 ml/min 08/30/21 00:10 BUN/Creatinine Ratio 17.4 (10-20) 08/30/21 00:10 Glucose 200 mg/dl (70-99) H 08/30/21 00:10 Lactate 1.4 mmol/L (0.4-2.0) 08/30/21 02:00 Calcium 9.3 mg/dl (8.5-10.1) 08/30/21 00:10 Magnesium 2.1 mg/dl (1.8-2.4) 08/30/21 00:10 Total Bilirubin 0.4 mg/dl (0.2-1) 08/30/21 00:10 AST 66 U/L (15-37) H 08/30/21 00:10 ALT 67 U/L (12-78) 08/30/21 00:10 Alkaline Phosphatase 93 U/L (45-117) 11/29/21 00:10 Troponin I < 0.015 ng/ml (0-0.045) 08/30/21 00:10 NT-Pro-B Natriuret Pep 314 pg/ml (0-1800) 08/30/21 00:10 Total Protein 7.7 gm/dl (6.4-8.2) 08/30/21 00:10 Albumin 3.5 gm/dl (3.4-5.0) 08/30/21 00:10 Globulin 4.2 gm/dl (2.5-4.0) H 08/30/21 00:10 Albumin/Globulin Ratio 0.8 (0.9-2) L 08/30/21 00:10 Procalcitonin < 0.05 ng/ml (0-0.5) 08/30/21 00:10 Urine Color Yellow 08/30/21 01:40 Urine Appearance Clear (Clear) 08/30/21 01:40 Urine pH 7.0 (4.5-7.5) 08/30/21 01:40 Ur Specific Louin 1.017 (1.000-1.030) 08/30/21 01:40 Urine Protein 2+ (Negative) H 08/30/21 01:40 Urine Glucose (UA) Trace (Negative) H 08/30/21 01:40 Urine Ketones Negative (Negative) 08/30/21 01:40 Urine Blood Negative (Negative) 08/30/21 01:40 Urine Nitrite Negative (Negative) 08/30/21 01:40 Urine Bilirubin Negative (Negative) 08/30/21 01:40 Urine Urobilinogen Negative (Negative) 08/30/21 01:40 Ur Leukocyte Esterase 1+ (Negative) H 08/30/21 01:40 Urine WBC (Auto) >30 /hpf (0-5) H 08/30/21 01:40 Urine RBC (Auto) 0-4 /hpf (0-4) 08/30/21 01:40 U Hyaline Cast (Auto) 10-30 /lpf (0-5) H 08/30/21 01:40 U Epithel Cells (Auto) 20-30 /lpf (0-5) H 08/30/21 01:40 Urine Bacteria (Auto) 4+ (Negative) H 08/30/21 01:40 Code Status & VTE Plan Code Status Full code VTE Prophylaxis Plan VTE Prophylaxis will be ordered: Yes PG Care Time/CCT Total # of Minutes Spent Total Time Spent with Patient: Total time spent is greater than 50% in coordination of care (as documented) at patient's floor/unit and/or counseling patient: Coding Level of Care Code INT OBSERVATION CARE 70M LVL 3 Diagnoses Acute UTI N39.0 COVID-19 U07.1 Obstructive airway disease J44.9 Type 2 diabetes mellitus E11.9 Dyslipidemia E78.5 Hypertension I10 CAD (coronary artery disease) I25.10 Moderate persistent asthma J45.40
[2021-08-30] MEDS ORDERED: ALBUT/IPRATROP 3MG/0.5MG NEB 3 ML VIAL NEB PRN (04:03)
--- NOTE | 2021-08-30 04:17 | Emergency Department Note ---
ED Visit Note I have personally seen and evaluated the patient with the PA. I agree with the diagnosis and management decisions and have been personally involved in the case. Please see Patito Auguste PA-C's notes for further details of the history, physical and visit. .
[2021-08-30] MEDS ORDERED: GLUCAGON FOR INJ 1 MG VIAL SQ PRN (06:26)
[2021-08-30] MEDS ORDERED: DEXTROSE 50% 50 ML SYRINGE IV PRN (06:26)
[2021-08-30] MEDS ORDERED: ACETAMINOPHEN 325 MG TAB PO PRN (06:26)
[2021-08-30] MEDS ORDERED: GLUCOSE 10 TABS/TUBE PO PRN (06:26)
[2021-08-30] MEDS ORDERED: ONDANSETRON INJ 2 MG/ML 2 ML VIAL IV PRN (06:26)
[2021-08-30] MEDS ORDERED: NSS + 20MEQ KCL 20 MEQ/1,000 ML BAG IV SCH (06:26)
[2021-08-30] MEDS ORDERED: GLUCOSE 40% GEL 15 GM TUBE PO PRN (06:26)
[2021-08-30] MEDS ORDERED: CARBOHYDRATES FOR HYPOGLYCEMIA PO PRN (06:26)
--- NOTE | 2021-08-30 07:50 | CT Scan Report ---
CHEST CTA for PULMONARY ARTERIES CT DOSE: 736.13 mGy.cm HISTORY: Shortness of breath. Chest tightness. PE, covid 2 weeks ago TECHNIQUE: Multiaxial CT images of the chest were performed following the intravenous administration of contrast to evaluate the pulmonary arteries. Maximal intensity projection images were also obtaine d. A dose lowering technique was utilized adhering to the principles of ALARA. COMPARISON STUDY: Chest CT 05/16/2011. FINDINGS: The visualized liver, spleen, and adrenal glands are unremarkable. There is a 1.2 cm exophy tic hypodense lesion within the upper pole the right kidney this is incompletely characterized on thi s noncontrast study but does not clearly represent a simple cyst. There is mild mediastinal and bilat eral hilar lymphadenopathy. This may be reactive. Normal esophagus. No pleural or pericardial effusio ns. The heart is normal in size. Normal caliber thoracic aorta with no evidence for dissection. No fi lling defects within the pulmonary arteries to suggest a pulmonary embolus. The bilateral lower lobe subsegmental pulmonary arteries are essentially nondiagnostic due to the respiratory motion. No acute fractures within the visualized osseous structures. There are old, healed right-sided rib fractures. No pneumothorax. The central airways are patent. There is mild central bronchial wall thickening. Mi ld emphysema. There is a new 6 mm nodule within the left lower lobe on image 98. Punctate calcified g ranuloma within the right upper lobe anteriorly. Slight increase in size in a branching tubular struc ture within the right lower lobe in image 106. This measures 12 mm, previously measuring 9 mm. Otherw ise, no focal lung consolidations to suggest pneumonia. There is mild peripheral interstitial thicken ing which may be chronic. IMPRESSION: 1. No evidence for pulmonary embolus. 2. Mild interstitial thickening which could be chronic or represent mild congestive change. 3. Mild mediastinal and hilar lymphadenopathy. This has slightly progressed in the interval. Follow-u p chest CT recommended to ensure stability/resolution. 4. A 1.2 cm exophytic hypodense lesion within the upper pole of the right kidney. This is incompletel y characterized on this noncontrast study but does not clearly represent a simple cyst. Follow-up non emergent renal ultrasound recommended for further evaluation. 5. Mild central bronchial wall thickening suggesting a bronchitis. 6. There is a new 6 mm nodule within the left lower lobe and slight increase in size in a 12 mm branc abel tubular structure within the right lower lobe. 7. Follow-up chest CT in 6 months is recommended to ensure stability of the pulmonary nodules and to reassess the mild lymphadenopathy. ACT 112: Positive. There are findings on this exam that require communication between the performing entity and the patient following Patient Test Result Information Act ([place] Act 112) guidelines. Electronically signed by: Martínez Hayes M.D. 08/30/2021 7:48 AM
[2021-08-30] MEDS ORDERED: NON-FORMULARY MEDICATION (Cranberry 500 mg Capsule) PO SCH (09:00)
[2021-08-30] MEDS ORDERED: INSULIN GLARGINE SOLOSTAR 100 UNITS/ML 3 ML PEN SQ SCH (09:00)
[2021-08-30] MEDS: CHOLECALCIFEROL 1,000 UNITS 25 MCG TAB PO SCH (09:06)
[2021-08-30] MEDS: ZINC SULFATE 220 MG CAPSULE PO SCH (09:06)
[2021-08-30] MEDS: VITAMIN B COMPLEX TAB PO SCH (09:06)
[2021-08-30] MEDS: CeleBREX 200 MG CAP PO SCH (09:07)
[2021-08-30] MEDS: ENOXAPARIN INJ 30 MG/0.3 ML SYR SQ SCH (09:07)
[2021-08-30] MEDS: METOPROLOL SUCC 25MG EXT REL TAB PO SCH (09:07)
[2021-08-30] MEDS: ROSUVASTATIN CALCIUM 5 MG TAB PO SCH (09:07)
[2021-08-30] MEDS: INSULIN ASPART 100 UNITS/ML 3 ML PEN SC SCH ×4 (09:09→21:58)
--- NOTE | 2021-08-30 14:41 | Electrocardiogram Report ---
Test Reason : Blood Pressure : / mmHG Vent. Rate : 072 BPM Atrial Rate : 072 BPM P-R Int : 172 ms QRS Dur : 132 ms QT Int : 436 ms P-R-T Axes : 000 -30 003 degrees QTc Int : 477 ms Normal sinus rhythm Left axis deviation Right bundle branch block Minimal voltage criteria for LVH, may be normal variant Abnormal ECG When compared with ECG of 21-AUG-2021 14:49, Nonspecific T wave abnormality, worse in Inferior leads T wave amplitude has decreased in Lateral leads Confirmed by Armond James ([id number]) on 08/30/2021 2:40:58 PM Referred By: REFERRED SELF Confirmed By:Robbie James
--- NOTE | 2021-08-30 17:44 | History & Physical Bridge Note ---
Date of Service August 30, 2021 History & Physical Bridge Note I have examined the patient, reviewed the History & Physical and in the interval since the performance of the History & Physical I have noted the following changes of clinical significance: no changes noted Patient evaluated in ER. Pain controlled. Feeling better. Discussed she has had issues with UTI about once a year, has been on ABx by PCP but "sometimes they don't work" and needs to come back for another type of antibiotic. She states she has been getting ready for selling house/move and had been over exerting herself but felt something was off with worsening fatigue and decreased strength in her legs and had to lower her to the ground because they wouldn't work. She states she does note she has had increased frequency but hadn't really been thinking about it. Discussed small finding on one kidney and to have renal US, however radiology contacted and given +COVID recently and non-emergent would hold off until recovered. For her COVID, she did get antibodies and was feeling much better. Back to her baseline breathing and did not require any antibiotics or steroids during her illness. She does note she has some reflux which she was on protonix for in the past,, hesitant about being "addicted to something". Discussed could be used short term . Agreeable and will order daily to see if improvement. Will continue IV abx Rocephin for now, IVF monitor urine culture, blood cultures de-escalate abx when able. WBC wnl, afebrile. Continue to monitor OF note, CTA done on admission given SOB/chest tightness and hx COVID and will need outpatient follow up CT Chest in 6 months. Stated breathing back to baseline. 98% on RA and she had been checking pulse ox at home with sats 95-97% IMPRESSION: 1. No evidence for pulmonary embolus. 2. Mild interstitial thickening which could be chronic or represent mild congestive change. 3. Mild mediastinal and hilar lymphadenopathy. This has slightly progressed in the interval. Follow-up chest CT recommended to ensure stability/resolution. 4. A 1.2 cm exophytic hypodense lesion within the upper pole of the right kidney. This is incompletely characterized on this noncontrast study but does not clearly represent a simple cyst. Follow-up nonemergent renal ultrasound recommended for further evaluation. 5. Mild central bronchial wall thickening suggesting a bronchitis. 6. There is a new 6 mm nodule within the left lower lobe and slight increase in size in a 12 mm branching tubular structure within the right lower lobe. 7. Follow-up chest CT in 6 months is recommended to ensure stability of the pulmonary nodules and to reassess the mild lymphadenopathy.
[2021-08-30] MEDS ORDERED: cefTRIAXone SODIUM 2,000 MG in DEXTROSE 5% 50 ML IV SCH (18:00)
[2021-08-30] MEDS: PANTOprazole 40 MG TAB PO SCH (18:21)
[2021-08-31 05:27] LABS: Basophils # (auto) 0.02 K/uL (0-0.2); Basophils % (auto) 0.3 %; Eosinophils # (auto) 0.21 K/uL (0-0.5); Eosinophils % (auto) 2.8 %; Hematocrit (blood only) 34.8 % (37-47); Hemoglobin 11.2 g/dL (12.0-16.0); Immature Granulocytes # (auto) 0.01 K/uL (0.00-0.02); Immature Granulocytes % (auto) 0.1 %; Lymphocytes # (auto) 2.62 K/uL (1.2-3.4); Lymphocytes % (auto) 35.3 %; Mean Corpuscular Hemoglobin 28.9 pg (25-34); Mean Corpuscular Hgb Conc 32.2 g/dL (32-36); Mean Corpuscular Volume 89.7 fL (80-100); Mean Platelet Volume 10.6 fL (7.4-10.4); Monocytes # (auto) 0.65 K/uL (0.11-0.59); Monocytes % (auto) 8.7 %; Neutrophils # (auto) 3.92 K/uL (1.4-6.5); Neutrophils % (auto) 52.8 %; Platelet Count 223 K/uL (130-400); RDW Coefficient of Variation 13.2 % (11.5-14.5); Red Blood Count 3.88 M/uL (4.2-5.4); White Blood Count 7.43 K/uL (4.8-10.8)
[2021-08-31 06:01] LABS: Albumin Level 3.1 gm/dl (3.4-5.0); BUN Creatinine Ratio 25.6 (10-20); Calcium 8.9 mg/dl (8.5-10.1); Creatinine Clr Calc Pharmacy 64.4 ml/min; Est GFR (African American) 83.7 ml/min; Est GFR (Non-African American) 72.2 ml/min; Potassium 4.3 mmol/L (3.5-5.1)
[2021-08-31 06:03] LABS: Albumin Globulin Ratio 0.9 (0.9-2); Bilirubin,Total 0.4 mg/dl (0.2-1); Globulin 3.5 gm/dl (2.5-4.0); Total Protein 6.6 gm/dl (6.4-8.2)
[2021-08-31 07:02] LABS: Estimated Average Glucose 163 mg/dl; Hemoglobin A1C 7.3 % (4.5-5.6)
[2021-08-31] MEDS: PANTOprazole 40 MG TAB PO SCH (08:17)
[2021-08-31] MEDS: INSULIN ASPART 100 UNITS/ML 3 ML PEN SC SCH ×2 (08:24→13:00)
--- NOTE | 2021-08-31 08:38 | Hospitalist Progress Note ---
Date of Service August 31, 2021 Assessment & Plan (1) Acute UTI: Plan: Acute on chronic UTI- Follow urine culture and sensitivities Was given ceftriaxone 2 g IV in ED, and this will be continued daily NSS + KCl 20 mEq at 80 mils per hour x1 L Zofran 4 mg IV every 6 hours as needed Acetaminophen 650 mg p.o. every 6 hours as needed mild pain or fever (2) COVID-19: Plan: COVID-19 infection/obstructive airways disease/moderate persistent asthma- Patient symptoms initially began on 08/17, had testing performed on 08/20, and received positive results on 08/21. For a few days that she did have increased shortness of breath and dyspnea on exertion above her baseline, but afterwards has returned toward her usual dyspnea on exertion symptoms. Continue her usual vitamin D and zinc (3) Moderate persistent asthma: Plan: Moderate persistent asthma/obstructive airways disease- Patient ports being back to baseline symptoms after recovering from COVID-19 exacerbation of symptoms. Hold the albuterol HFA due to shortage DuoNebs every 2 hours as needed Receives omalizumab injection every 4 weeks as an outpatient (4) Obstructive airway disease: Plan: See above (5) Type 2 diabetes mellitus: Plan: Continue insulin glargine [address] on Accu-Cheks before meals and at bedtime with NovoLog coverage per scale Check hemoglobin A1c (6) CAD (coronary artery disease): Plan: CAD/hypertension- Continue metoprolol succinate 25 mg p.o. daily Hold lisinopril (7) Hypertension: Plan: See above (8) Dyslipidemia: Plan: Continue rosuvastatin 5 mg daily Admission and Anticipated Discharge Date Admission Date: August 30, 2021 Results & Data Results & Data ([facility]) Vital Signs (Past 12 Hours) Vital Signs Pulse Resp BP Pulse Ox 08/31/21 08:21 65 18 165/55 H 96 08/31/21 03:13 70 15 145/62 H 95 08/30/21 20:38 62 16 145/67 H 97 Laboratory Results 08/31/21 08/31/21 08/31/21 Range/Units 08:16 04:57 04:57 WBC (4.8-10.8) K/uL RBC (4.2-5.4) M/uL Hgb (12.0-16.0) g/dL Hct (37-47) % MCV (80-100) fL MCH (25-34) pg MCHC (32-36) g/dL RDW Std Deviation (36.4-46.3) fL RDW Coeff of Marek (11.5-14.5) % Plt Count (130-400) K/uL MPV (7.4-10.4) fL Immature Gran % (Auto) % Neut % (Auto) % Lymph % (Auto) % [place] % (Auto) % Eos % (Auto) % Baso % (Auto) % Neut # (Auto) (1.4-6.5) K/uL Lymph # (Auto) (1.2-3.4) K/uL [place] # (Auto) (0.11-0.59) K/uL Eos # (Auto) (0-0.5) K/uL Baso # (Auto) (0-0.2) K/uL Immature Gran # (Auto) (0.00-0.02) K/uL Sodium 138 (136-145) mmol/L Potassium 4.3 (3.5-5.1) mmol/L Chloride 109 H (98-107) mmol/L Carbon Dioxide 27 (21-32) mmol/L Anion Gap 2.0 L (3-11) BUN 20 H (7-18) mg/dl Creatinine 0.79 (0.6-1.2) mg/dl Est Cr Clr Drug Dosing 64.4 ml/min Est GFR ( Amer) 83.7 ml/min Est GFR (Non-Af Amer) 72.2 ml/min BUN/Creatinine Ratio 25.6 H (10-20) Glucose 122 H (70-99) mg/dl POC Glucose 103 H (70-99) mg/dl Estimat Average Glucose 163 mg/dl Hemoglobin A1c 7.3 H (4.5-5.6) % Calcium 8.9 (8.5-10.1) mg/dl Total Bilirubin 0.4 (0.2-1) mg/dl AST 15 (15-37) U/L ALT 40 (12-78) U/L Alkaline Phosphatase 83 (45-117) U/L Total Protein 6.6 (6.4-8.2) gm/dl Albumin 3.1 L (3.4-5.0) gm/dl Globulin 3.5 (2.5-4.0) gm/dl Albumin/Globulin Ratio 0.9 (0.9-2) 08/31/21 08/30/21 08/30/21 Range/Units 04:57 21:58 18:16 WBC 7.43 (4.8-10.8) K/uL RBC 3.88 L (4.2-5.4) M/uL Hgb 11.2 L (12.0-16.0) g/dL Hct 34.8 L (37-47) % MCV 89.7 (80-100) fL MCH 28.9 (25-34) pg MCHC 32.2 (32-36) g/dL RDW Std Deviation 43.0 (36.4-46.3) fL RDW Coeff of Marek 13.2 (11.5-14.5) % Plt Count 223 (130-400) K/uL MPV 10.6 H (7.4-10.4) fL Immature Gran % (Auto) 0.1 % Neut % (Auto) 52.8 % Lymph % (Auto) 35.3 % [place] % (Auto) 8.7 % Eos % (Auto) 2.8 % Baso % (Auto) 0.3 % Neut # (Auto) 3.92 (1.4-6.5) K/uL Lymph # (Auto) 2.62 (1.2-3.4) K/uL [place] # (Auto) 0.65 H (0.11-0.59) K/uL Eos # (Auto) 0.21 (0-0.5) K/uL Baso # (Auto) 0.02 (0-0.2) K/uL Immature Gran # (Auto) 0.01 (0.00-0.02) K/uL Sodium (136-145) mmol/L Potassium (3.5-5.1) mmol/L Chloride (98-107) mmol/L Carbon Dioxide (21-32) mmol/L Anion Gap (3-11) BUN (7-18) mg/dl Creatinine (0.6-1.2) mg/dl Est Cr Clr Drug Dosing ml/min Est GFR ( Amer) ml/min Est GFR (Non-Af Amer) ml/min BUN/Creatinine Ratio (10-20) Glucose (70-99) mg/dl POC Glucose 110 H 112 H (70-99) mg/dl Estimat Average Glucose mg/dl Hemoglobin A1c (4.5-5.6) % Calcium (8.5-10.1) mg/dl Total Bilirubin (0.2-1) mg/dl AST (15-37) U/L ALT (12-78) U/L Alkaline Phosphatase (45-117) U/L Total Protein (6.4-8.2) gm/dl Albumin (3.4-5.0) gm/dl Globulin (2.5-4.0) gm/dl Albumin/Globulin Ratio (0.9-2) 08/30/ Range/Units 12:24 WBC (4.8-10.8) K/uL RBC (4.2-5.4) M/uL Hgb (12.0-16.0) g/dL Hct (37-47) % MCV (80-100) fL MCH (25-34) pg MCHC (32-36) g/dL RDW Std Deviation (36.4-46.3) fL RDW Coeff of Marek (11.5-14.5) % Plt Count (130-400) K/uL MPV (7.4-10.4) fL Immature Gran % (Auto) % Neut % (Auto) % Lymph % (Auto) % [place] % (Auto) % Eos % (Auto) % Baso % (Auto) % Neut # (Auto) (1.4-6.5) K/uL Lymph # (Auto) (1.2-3.4) K/uL [place] # (Auto) (0.11-0.59) K/uL Eos # (Auto) (0-0.5) K/uL Baso # (Auto) (0-0.2) K/uL Immature Gran # (Auto) (0.00-0.02) K/uL Sodium (136-145) mmol/L Potassium (3.5-5.1) mmol/L Chloride (98-107) mmol/L Carbon Dioxide (21-32) mmol/L Anion Gap (3-11) BUN (7-18) mg/dl Creatinine (0.6-1.2) mg/dl Est Cr Clr Drug Dosing ml/min Est GFR ( Amer) ml/min Est GFR (Non-Af Amer) ml/min BUN/Creatinine Ratio (10-20) Glucose (70-99) mg/dl POC Glucose 139 H (70-99) mg/dl Estimat Average Glucose mg/dl Hemoglobin A1c (4.5-5.6) % Calcium (8.5-10.1) mg/dl Total Bilirubin (0.2-1) mg/dl AST (15-37) U/L ALT (12-78) U/L Alkaline Phosphatase (45-117) U/L Total Protein (6.4-8.2) gm/dl Albumin (3.4-5.0) gm/dl Globulin (2.5-4.0) gm/dl Albumin/Globulin Ratio (0.9-2) PG Care Time/CCT Total # of Minutes Spent Total Time Spent with Patient: Total time spent is greater than 50% in coordination of care (as documented) at patient's floor/unit and/or counseling patient: Coding Diagnoses Acute UTI N39.0 COVID-19 U07.1 Moderate persistent asthma J45.40 Obstructive airway disease J44.9 Type 2 diabetes mellitus E11.9 CAD (coronary artery disease) I25.10 Hypertension I10 Dyslipidemia E78.5
[2021-08-31] MEDS: METOPROLOL SUCC 25MG EXT REL TAB PO SCH (09:42)
[2021-08-31] MEDS: ENOXAPARIN INJ 30 MG/0.3 ML SYR SQ SCH (09:42)
[2021-08-31] MEDS: ROSUVASTATIN CALCIUM 5 MG TAB PO SCH (09:43)
[2021-08-31] MEDS: CHOLECALCIFEROL 1,000 UNITS 25 MCG TAB PO SCH (09:43)
[2021-08-31] MEDS: ZINC SULFATE 220 MG CAPSULE PO SCH (09:43)
[2021-08-31] MEDS: VITAMIN B COMPLEX TAB PO SCH (09:43)
[2021-08-31] MEDS: CeleBREX 200 MG CAP PO SCH (09:43)
[2021-08-31] MEDS ORDERED: CEFDINIR 300 MG CAP PO ONE (11:51)
[2021-08-31] MEDS ORDERED: lisinopril 10 MG TAB PO STA (12:39)
--- NOTE | 2021-08-31 14:48 | Discharge Summary ---
Date of Service August 31, 2021 Admission HPI Per Admitting Provider Chief Complaint: The patient presents to the emergency department with complaint of shortness of breath, dyspnea on exertion worse than her baseline, that began on 08/17/21. She called her PCPs office, got a COVID-19 test on 08/20, and received a report of it being positive on 08/21. The patient had been on cefdinir, and continued to take her usual albuterol HFA, and her breathing symptoms are now back to her baseline COPD. She reports having symptoms of urinary frequency and urgency for the past year, and more recently has increased her cranberry juice to 3 times daily to help combat the symptoms. She also reports being very fatigued. The patient reports that she had at 5:30 this evening, and then after that realized that she was not feeling well in general, she went to bed at 830, woke up, and as her put her on the edge of the bed, she felt lightheaded, dizzy, and had sweats, similar to what she experienced with low blood sugar, however, her sugar was 180 at that time Primary Care Provider: Kaylee Osorio DO The patient is a 75-year-old female with a past medical history including chronic idiopathic urticaria, moderate persistent asthma, aortic valve sclerosis, COPD, diabetes mellitus, dyslipidemia, hypertension and CAD. She presents with symptoms as noted above. Her COVID-19 test was not repeated this evening, although she was to require COVID-19 precautions. Urinalysis was suggestive of UTI. Chest x-ray was normal. Pulse ox was 95-98% on room air From the ED patient received: Ceftriaxone 2 g IV, famotidine 20 mg IV, normal saline 500 mils and Zofran 4 mg IV. Admission Exam Per Admitting Provider The patient is awake, alert and oriented 3, well developed and well nourished, normocephalic and atraumatic, lying in bed and in no acute distress. HEENT--PERRL, EOMI, mucous membranes and oropharynx mildly dry. Neck--supple. No JVD. No bruits. Thyroid normal, trachea midline, no adenopathy . Heart--normal S1 and S2. No murmurs, rubs or gallops. Lungs--clear bilaterally, no respiratory distress, no accessory muscle use. Abdomen--normal bowel sounds and soft. Nontender. Nondistended, no hernias or masses, no organomegaly. Extremities--no cyanosis or clubbing. No edema. Dermatologic--normal skin turgor, normal color, no abnormal lymph nodes, no rash. Neurologic--cranial nerves II through XII grossly intact. Rheumatologic--normal range of motion. Psychiatric--normal affect. Principal Diagnosis UTI Discharge Exam The patient is awake, AOx3, pleasant affect, no acute distress Eyes anicteric, EOMI Trachea midline without deviation Resp: faint crackles, no accessory muscle use, not tachypneic, no wheezes or rales, on room air O2 sat 97% CV: RRR, no m/r/g, no edema GI: +BS throughout, soft, nontender MSK/Neuro: moves all extremities, no focal deficits Psych: alert, oriented x 3 Skin: cool, dry : no Lujan Discharge Data Allergies Allergy/AdvReac Type Severity Reaction Status Date / Time doxycycline Allergy Severe ASTHMA Verified 09/02/21 13:02 ATTACK, HIVES Sulfa (Sulfonamide Allergy Severe SWELLING Verified 09/02/21 13:02 Antibiotics) AND REDNESS, EYES SWELLED latex Allergy Intermediate SKIN Verified 09/02/21 13:02 IRRITATION-RASH atorvastatin AdvReac Intermediate Muscle Pain Verified 09/02/21 13:02 metformin AdvReac Intermediate Gastrointestinal Verified 09/02/21 13:02 Upset Consultations 08/30/21 02:59 ED Decision to Admit Stat Ordered Studies Chest CTA 08/29/21 23:38 CHEST CTA for PULMONARY ARTERIES CT DOSE: 736.13 mGy.cm HISTORY: Shortness of breath. Chest tightness. PE, covid 2 weeks ago TECHNIQUE: Multiaxial CT images of the chest were performed following the intravenous administration of contrast to evaluate the pulmonary arteries. Maximal intensity projection images were also obtained. A dose lowering technique was utilized adhering to the principles of ALARA. COMPARISON STUDY: Chest CT 05/16/2011. FINDINGS: The visualized liver, spleen, and adrenal glands are unremarkable. There is a 1.2 cm exophytic hypodense lesion within the upper pole the right kidney this is incompletely characterized on this noncontrast study but does not clearly represent a simple cyst. There is mild mediastinal and bilateral hilar lymphadenopathy. This may be reactive. Normal esophagus. No pleural or pericardial effusions. The heart is normal in size. Normal caliber thoracic aorta with no evidence for dissection. No filling defects within the pulmonary arteries to suggest a pulmonary embolus. The bilateral lower lobe subsegmental pulmonary arteries are essentially nondiagnostic due to the respiratory motion. No acute fractures within the visualized osseous structures. There are old, healed right-sided rib fractures. No pneumothorax. The central airways are p atent. There is mild central bronchial wall thickening. Mild emphysema. There is a new 6 mm nodule within the left lower lobe on image 98. Punctate calcified granuloma within the right upper lobe anteriorly. Slight increase in size in a branching tubular structure within the right lower lobe in image 106. This measures 12 mm, previously measuring 9 mm. Otherwise, no focal lung consolidations to suggest pneumonia. There is mild peripheral interstitial thickening which may be chronic. IMPRESSION: 1. No evidence for pulmonary embolus. 2. Mild interstitial thickening which could be chronic or represent mild congestive change. 3. Mild mediastinal and hilar lymphadenopathy. This has slightly progressed in the interval. Follow-up chest CT recommended to ensure stability/resolution. 4. A 1.2 cm exophytic hypodense lesion within the upper pole of the right kidney. This is incompletely characterized on this noncontrast study but does not clearly represent a simple cyst. Follow-up nonemergent renal ultrasound recommended for further evaluation. 5. Mild central bronchial wall thickening suggesting a bronchitis. 6. There is a new 6 mm nodule within the left lower lobe and slight increase in size in a 12 mm branching tubular structure within the right lower lobe. 7. Follow-up chest CT in 6 months is recommended to ensure stability of the pulmonary nodules and to reassess the mild lymphadenopathy. ACT 112: Positive. There are findings on this exam that require communication between the performing entity and the patient following Patient Test Result Information Act ([place] Act 112) guidelines. Electronically signed by: Martínez Hayes M.D. 08/30/2021 7:48 AM Hospital Course (1) Acute UTI: Acute on chronic UTI- Follow urine culture and sensitivities Ceftriaxone IV while inpatient, IVF and antiemetics, pain control provided Urine cx -- gram negative bacilli. Rx for cefdinir x 10 days for tx possible complicated UTI. Prior cx from [facility] with klebsiella, pansensitive but no recent cx. cx pending at time of d/c however patient feeling much improved and ready for d/c To have outpatient f/u of renal US for small lesion to kidney too small to characterize but discussed with radiology and felt not abscess or concerns for infectious etiology at this time Also will need to have f/u CT chest as below to ensure resolution of mediastinal and hilar lymphadenopathy --> this was discussed with patient but not included in d/c instructions and I called patient to ensure she recalled the need for follow up as discussed with her by myself on day of admission. (2) COVID-19: COVID-19 infection/obstructive airways disease/moderate persistent asthma- Patient symptoms initially began on 08/17, had testing performed on 08/20, and received positive results on 08/21. For a few days that she did have increased shortness of breath and dyspnea on exertion above her baseline, but afterwards has returned toward her usual dyspnea on exertion symptoms. Continue her usual vitamin D and zinc Utilized PPE while inpatient for precautions 95-99% on room air without respiratory complains and back to her usual breathing CTA on admission without PE WILL NEED Follow-up chest CT in 6 months is recommended to ensure stability of the pulmonary nodules and to reassess the mild lymphadenopathy. Impression as below: CTA: 1. No evidence for pulmonary embolus. 2. Mild interstitial thickening which could be chronic or represent mild congestive change. 3.Mild mediastinal and hilar lymphadenopathy. This has slightly progressed in the interval. Follow-up chest CT recommended to ensure stability/resolution. 4. A 1.2 cm exophytic hypodense lesion within the upper pole of the right kidney. This is incompletely characterized on this noncontrast study but does not clearly represent a simple cyst.Follow-up nonemergent renal ultrasound recommended for further evaluation. 5. Mild central bronchial wall thickening suggesting a bronchitis. 6. There is a new 6 mm nodule within the left lower lobe and slight increase in size in a 12 mm branching tubular structure within the right lower lobe. (3) Moderate persistent asthma: Moderate persistent asthma/obstructive airways disease- Patient ports being back to baseline symptoms after recovering from COVID-19 exacerbation of symptoms. Hold the albuterol HFA due to shortage DuoNebs every 2 hours as needed Receives omalizumab injection every 4 weeks as an outpatient -- to continue (4) Obstructive airway disease: See above (5) Type 2 diabetes mellitus: Continue insulin glargine [address] on Accu-Cheks before meals and at bedtime with NovoLog coverage per scale A1c elevated 7.3 from 7.0 prior, and discussed with patient to continue f/u with PCP and monitoring as there may be some dietary indiscretions recently (6) CAD (coronary artery disease): CAD/hypertension- Continue metoprolol succinate 25 mg p.o. daily Held lisinopril on admission, CR stable and improved and this was resumed prior to d/c (7) Hypertension: See above continued lisinopril at d/c (8) Dyslipidemia: Continued rosuvastatin 5 mg daily (9) Mediastinal lymphadenopathy: likely 2nd to recent covid infection, however will need repeat CT in 6 months to ensure resolution as above patient wanting to go home, feeling much better urine cx w gram negative bacilli and d/c on cefdinir to complete 10 day course f/u with PCP for renal US, f/u CT chest in 6 months for resolution, and continued monitoring/management of her diabetes Total Time Total Time Spent Total Time Spent (In Minutes): 45 Discharge Plan Discharge Items Patient Disposition: Home - Self-Care Reason For Visit: UTI, COVID-19, PRE-SYNCOPE Discharge Diagnosis: UTI Condition on Discharge: Good Goals: You have been hospitalized for an acute medical problem. During your stay at [facility], we have made an effort to correct the problem that brought you to the hospital while keeping you as comfortable as possible. Medications were used to bring your condition under control and your discharge instructions will include directions for any medications you should take after leaving the hospital. Please make sure you see your Primary Care Provider as part of your follow up plan. Activity: Resume your previous activity Non-emergency contact: Primary Care Provider Call non-emergency contact if: you have any medication questions, your symptoms worsen and you have a fever Follow-up/Referrals: Kaylee Osorio, [Primary Care Provider] - Diet: Carb Consistent or DM2 and Heart Healthy Addtl Attending Provider Instructions: You have been hospitalized and found to have a UTI. You were given IV antibiotics and your urine culture is growing gram negative bacilli. Your final culture is not yet resulted but you are being sent on cefdinir for a total treatment of 10 days to complete the course. You will be called if culture shows they are resistant to this antibiotic. You have been sent in rx for protonix for reflux symptoms as this seems to have helped. You should follow up with PCP in the next 7-10 days to monitor your progress from hospitalization. You should have a renal ultrasound (non-emergent) done as an outpatient for findings on abdominal imaging. This was felt not to be an abscess and too small to characterized at this time. Please return to the ER with any fever, increased urinary symptoms, shortness of breaths, or for any other symptoms that are concerning for you. Pending Studies at Discharge: Yes Studies:: urine culture -- gram negative bacilli Stand-Alone Forms: My [facility] [address] [address] [employer] [facility], Smoking Cessation Medications and DC Order Prescriptions: New cefdinir 300 mg capsule 300 mg PO BID 9 Days Qty: 17 RF: 0 pantoprazole 40 mg tablet,delayed release (DR/EC) 40 mg PO DAILY 28 Days Qty: 28 RF: 0 Continued albuterol sulfate [ProAir HFA] 90 mcg/actuation HFA aerosol inhaler 2 puffs INH Q6H PRN (Reason: shortness of breath or wheezing) Qty: 6.7 RF: 0 (DME) insulin syringe-needle U-100 [BD Insulin Syringe Ultra-Fine] 0.5 mL 31 gauge x 5/16" syringe See Rx Instructions .ROUTE .MEDSUPPLY Qty: 100 RF: 3 (DME) pen needle, diabetic [BD Ultra-Fine Mini Pen Needle] 31 gauge x 3/16" needle See Rx Instructions .ROUTE .MEDSUPPLY Qty: 360 RF: 3 lisinopril 10 mg tablet 10 mg PO DAILY Qty: 90 RF: 3 (DME) lancets 32 gauge misc See Rx Instructions .ROUTE .MEDSUPPLY Qty: 300 RF: 3 (DME) FreeStyle Lite Strips Strip See Dose Instructions .ROUTE .MEDSUPPLY Qty: 400 RF: 3 metoprolol succinate 25 mg tablet extended release 24 hr 25 mg PO DAILY Qty: 90 RF: 3 rosuvastatin [Crestor] 5 mg tablet 5 mg PO DAILY Qty: 90 RF: 3 Xolair 150 mg recon soln 300 mg SQ Q4WK RF: 0 Basaglar KwikPen U-100 Insulin 100 unit/mL (3 mL) insulin pen 28 unit SQ DAILY Qty: 2 RF: 3 diphenoxylate-atropine [Lomotil] 2.5-0.025 mg Tablet 1 tab PO DIRECTED PRN (Reason: Diarrhea) RF: 0 vitamin B complex Tablet 1 - 2 tab PO DAILY RF: 0 zinc 50 mg Tablet 50 mg PO DAILY RF: 0 cranberry 500 mg Capsule 1,500 mg PO DAILY RF: 0 cholecalciferol (vitamin D3) [Vitamin D3] 25 mcg (1,000 unit) Capsule 50 - 75 mcg PO DAILY RF: 0 cinnamon bark [Cinnamon] 500 mg Capsule 2,000 mg PO DAILY RF: 0 celecoxib 200 mg capsule 200 mg PO DAILY RF: 0 clobetasol 0.05 % ointment 1 appln TOP BID PRN (Reason: SKIN IRRITATIONS) RF: 0 Imvexxy Maintenance Pack 4 mcg insert 4 mcg VAGINAL DIRECTED PRN (Reason: Sexual Activity) RF: 0 No Action insulin aspart U-100 [Novolog Flexpen U-100 Insulin] 100 unit/mL (3 mL) insulin pen 12 unit SQ DAILY RF: 0 Discharge Orders: Discharge Order (Routine); Ordered 08/31/21 Ordered By: Bhakti Vieira/Other Patient Handouts: A1C, Managing Type 2 Diabetes Admission Data Admit Date/Time: 08/30/21 03:48 Attending Provider: Clive Bill Admit Provider: Luis Mckeon Primary Care Provider: Kaylee Osorio Other Providers: Luis Mckeon Other Interventions: Discharge Summary Assessment (RN) Last Done: 08/31/21 14:12 Supervising Physician Co-Signing Physician Notes Patient is a 75 yo female who is being discharged after being treated for acute UTI During face to face encounter, a brief history of hospital stay and physical was obtained. I discussed plan of care with MISBAH Roman and patient. Answered the patients questions. Reviewed above note and agree with document. PATIENT WAS TREATED WITH ANTIBIOTICS STATED ABOVE Coding Level of Care Code D/C DAY MANAGEMENT >30 MINS Diagnoses Acute UTI N39.0 COVID-19 U07.1 Moderate persistent asthma J45.40 Obstructive airway disease J44.9 Type 2 diabetes mellitus E11.9 CAD (coronary artery disease) I25.10 Hypertension I10 Dyslipidemia E78.5 Mediastinal lymphadenopathy R59.0
== END 2021-08-31 14:18 | disposition home or self-care (01) ==
LOC: ED 23:12 → EDINP 23:12 → SUATTDRO 08-30 03:48 → EDINP 08-30 05:46

== ENCOUNTER 2022-06-08 10:09 | Inpatient (IN) ==
[~2022-06-08 10:09] MED LIST changes: -ADVIN25050 INH; -ALBUAER2 INH; +DOPamine 400MG / 250ML D5W IV ONE; -LISI-461 PO; -PRLSR20 PO; +RAPID SEQUENCE INDUCTION BAG ONE; -[UNRECOGNIZED DRUG - OTHER] PO
[2022-06-08] MEDS ORDERED: SODIUM CHLORIDE 0.9% 500 ML IV STA (10:23)
[2022-06-08] MEDS ORDERED: XYLOCAINE 1%/SOD BICARB 20 ML VIAL INFIL ONE (10:24)
[2022-06-08] MEDS ORDERED: LIDO/EPINEPHRINE/SOD BICARB 20 ML VIAL INFIL ONE (10:24)
[2022-06-08] MEDS ORDERED: MIDAZOLAM HCL 1 MG/ML 2ML VIAL ONE ×3 (10:25→14:32)
[2022-06-08] MEDS ORDERED: fentaNYL citrate 100 MCG/2 ML VIAL ONE ×3 (10:25→13:48)
[2022-06-08] MEDS ORDERED: niCARdipine HCL INJ 2.5 MG/ML 10 ML AMP ONE (10:29)
[2022-06-08] MEDS ORDERED: HEPARIN (PORCINE) 1000 UNIT/ML 10 ML (CATH LAB USE ONLY) ONE (10:29)
[2022-06-08] MEDS ORDERED: DOPAMINE / D5W 400 MG/250 ML BRADYCARDIA IV SCH (10:30)
[2022-06-08] MEDS ORDERED: NITROGLYCERIN/D5W 100MCG/ML 20ML SYR ONE (10:30)
--- NOTE | 2022-06-08 10:51 | Emergency Department Note ---
History of Present Illness General Chief complaint: Syncope Stated complaint: SYNCOPE, BRADYCARDIA Source: patient, family and EMS Mode of arrival: EMS Limitations: altered mental status History of Present Illness Patient was brought in after having a third-degree heart block and syncope. EMS called me and said that he passed out and had a heart rate of 25 they transmitted the EKG and it was indeed a third-degree heart block. They gave atropine on route and put pacemaker pads on the established an IV. I did call Dr. Sanchez ahead of time as the ETA was 15 minutes as I was concerned she would need to go emergently to [facility]. She arrived and they were bagging her. She did have a pulse but it was in the 20s. Family did arrive and I talked to him at length she has not been ill lately she has no renal issues. Home Medications Medication Instructions Recorded Confirmed Type albuterol sulfate 90 mcg/actuation 2 puffs inhalation Q6H PRN 04/26/19 05/11/22 Rx aerosol inhaler (ProAir HFA) shortness of breath or wheezing #6.7 grams BD Insulin Syringe Ultra-Fine 0.5 #100 ea 01/03/20 03/17/22 Rx mL 31 gauge x 5/16" (insulin syringe-needle U-100) lancets 32 gauge #300 ea 04/27/20 05/11/22 Rx blood sugar diagnostic (FreeStyle #400 ea 07/13/20 03/17/22 Rx Lite Strips) cholecalciferol (vitamin D3) 25 50 mcg PO QAM 08/30/21 05/11/22 History mcg (1,000 unit) capsule (Vitamin D3) cinnamon bark 500 mg capsule 2,000 mg PO QAM 08/30/21 05/11/22 History (Cinnamon) vitamin B complex 1 tab PO QAM 08/30/21 05/11/22 History insulin aspart U-100 100 unit/mL 0 unit subcut UD 09/02/21 05/11/22 History (3 mL) subcutaneous pen (Novolog Flexpen U-100 Insulin aspart) flash glucose sensor (FreeStyle #1 ea 10/21/21 05/11/22 Rx Devi 2 Sensor kit) lisinopril 10 mg tablet 10 mg PO QAM 12/02/21 05/11/22 History metoprolol succinate 25 mg 25 mg PO QAM 12/02/21 05/11/22 History tablet,extended release 24 hr pen needle, diabetic 31 gauge x #360 ea 12/02/21 05/11/22 Rx 3/16" (BD Ultra-Fine Mini Pen Needle) insulin glargine 100 unit/mL (3 38 unit subcut QAM 01/14/22 05/11/22 History mL) subcutaneous pen (Basaglar KwikPen U-100 Insulin) omalizumab 150 mg subcutaneous 300 mg subcut Q4WK #1 ea 02/02/22 05/11/22 Rx solution (Xolair) tramadol 50 mg tablet 25 mg PO Q8H PRN pain #30 tabs 03/07/22 05/11/22 Rx acetaminophen 500 mg tablet 1,000 mg PO Q6H PRN Pain 04/27/22 05/11/22 History cranberry concentrate-ascorbic 2 cap PO QAM 04/27/22 05/11/22 History acid 420 mg-100 mg capsule rosuvastatin 10 mg tablet (Crestor) 10 mg PO QAM 04/27/22 05/11/22 History Metamucil 05/02/22 05/11/22 History diphenoxylate-atropine 2.5 tab PRN Diarrhea 05/02/22 05/11/22 History mg-0.025 mg tablet (Lomotil) Compound Pain Cream topical PRN 05/11/22 History aspirin 81 mg tablet,delayed 81 mg PO DAILY #30 tabs 05/11/22 05/11/22 Rx release Allergies Allergy/AdvReac Type Severity Reaction Status Date / Time doxycycline Allergy Intermediate ASTHMA Verified 05/11/22 09:43 ATTACK, HIVES Sulfa (Sulfonamide Allergy Intermediate SWELLING Verified 05/11/22 09:43 Antibiotics) AND REDNESS, EYES SWELLED latex Allergy Mild SKIN Verified 05/11/22 09:43 IRRITATION-RASH atorvastatin AdvReac Mild Muscle Pain Verified 05/11/22 09:43 metformin AdvReac Mild Gastrointestinal Verified 05/11/22 09:43 Upset Past Med/Surg History Medical History (Updated 06/08/22 @ 15:49 by Jose Oconnor MD) Aortic valve sclerosis follows with [facility], last echo 08/18/21 Asthma controlled, stable per pt-last rescue inhaler use several months ago Bifascicular block CAD (coronary artery disease) [place] [facility] [place] Mid LAD 40%. D1 ostial/proximal 60%. Ostial OM1 70%. Small RCA. Proximal RCA 40%. Mid RCA 50%. EF 65%-no stents, follows with [facility] Cardiac murmur slight systolic murmur noted on 05/02/22 PAT exam; sclerotic aortic valve without sig stenosis per 08/18/21 echo Carotid bruit none heard on exam at 05/02/22 PAT appt; pt denies carotid ultrasound Chronic idiopathic urticaria follows with [facility] COVID-19 HX AUG AND - MONOCLONAL ANTIBODY TX; hospitalized day #14 of covid for severe UTI, "not for covid" Dyslipidemia Eczema History of anesthesia reaction "RASH, SWELLING, HIVES" AFTER L breast lumpectomy 2009-pt states is very sensitive to many medications, follows with [facility] History of blood transfusion in teenage years d/t menorrhagia Hx of eye disorder "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, currently being monitored by my retina specialist in [place]" Hypertension controlled, stable per pt IBS (irritable bowel syndrome) Mild concentric left ventricular hypertrophy (LVH) Obstructive airway disease asthma per pt Pulmonary hypertension mild per 08/2021 echo, RVSP 39 mmHg Pulmonary nodules 6 mm nodule LLL, slight increase in a 12 mm branching tubular structure RLL-[address] recommended per report for stability assessment of nodules and lymphadenopathy Type 2 diabetes mellitus IDDM Surgical History History of cardiac cath [place] [facility] [place] Mid LAD 40%. D1 ostial/proximal 60%. Ostial OM1 70%. Small RCA. Proximal RCA 40%. Mid RCA 50%. EF 65%. No or MR. PCWP 16. PA pressure 32/16 with a mean of 21. PVR 1.1. Cardiac index 2.4. LVEDP 18. "medical therapy was recommended" History of cataract surgery RT History of cholecystectomy History of colonoscopy History of lumpectomy BREAST, MULTIPLE TIMES - BENIGN Hx of arthroscopic knee surgery Lt. Family History Father Diabetes Coronary heart disease Bronchitis Asthma Mother Coronary heart disease Arthritis Cancer Hypertension Stroke Uncle Diabetes Grandmother Family history of colon cancer Other Family history of stomach cancer Social History Smoking Status: Unknown if ever smoked Second Hand Exposure: No; Hx Alcohol Use: No Hx Substance Use: No Preferred Language: Indonesian Communication Ability: Effective Motor Runner Required: No Beliefs That Will Affect Care: None marital status: Current Living Situation: Spouse Feels Safe at Home: Yes Assistive Devices: Denture - Upper, Denture - Lower and Walker Review of Systems A total of 10 systems reviewed and were otherwise negative Physical Exam Vital Signs Vital Signs - 24 hr 06/08/22 10:11 06/08/22 10:15 06/08/22 10:16 Pulse Rate 43 L 31 L Pulse Rate from SpO2 Sensor 32 L Respiratory Rate 27 H 14 Blood Pressure Mean Pulse Oximetry 100 Sepsis Recent Fever Within 48 Hours No Sepsis New/Unexplained Change in Mental Status Yes Sepsis Action Taken by Nursing No Action Required 06/08/22 10:16 06/08/22 10:20 Pulse Rate 160 H Pulse Rate from SpO2 Sensor 156 H Respiratory Rate 32 H Blood Pressure Mean 56 Pulse Oximetry 100 Sepsis Recent Fever Within 48 Hours Sepsis New/Unexplained Change in Mental Status Sepsis Action Taken by Nursing General: Well developed well nourished obtunded older female who being bagged= HEENT: Normal cephalic atraumatic. Pupils are equal round and reactive to light. Extraocular movements are intact. Oropharynx is pink with moist mucous membranes. No swelling of the mouth lips or tongue. Neck: Supple with a midline trachea. No meningeal signs or stiffness, no JVD or bruits. No Stridor. Chest: Clear to auscultation bilaterally. No wheezes or rhonchi. No increased work of breathing. Heart: Significantly bradycardic without murmurs or gallops. Abdomen: Soft nontender, nondistended without rebound guarding or rigidity. Extremities: No cyanosis clubbing or edema. No calf tenderness or assymetry she does have a palpable femoral pulse Spine/Back. Non tender to palpation. No CVA tenderness Skin: Good turgor without rashes. Neurologic exam: Initially obtunded Course Administered Medications Sodium Chloride (Nss 1000ml) 1,000 mls @ 75 mls/hr IV .[id number] RENU Stop: 07/08/22 11:59 Last Admin: 06/08/22 12:31 Dose: 75 mls/hr Documented By: ELLY Insulin Aspart (Insulin Aspart Per Unit) 0 units SC [facility] Stop: 07/08/22 12:10 Last Admin: 06/08/22 13:09 Dose: 5 units Documented By: ELLY Co-signed By: ORQUIDEA Discontinued Medications Cefazolin Sodium (Cefazolin 330 Mg/Ml 1 Gm Vial) Confirm Administered Dose 1,980 mg .ROUTE .STK-MED ONE Stop: 06/08/22 13:49 Last Admin: 06/08/22 15:08 Dose: 1,980 mg Documented By: FLACO Fentanyl Citrate (Fentanyl Citrate 100 Mcg/2 Ml Vial) Confirm Administered Dose 100 mcg .ROUTE .STK-MED ONE Stop: 06/08/22 10:26 Last Admin: 06/08/22 12:29 Dose: Not Given Documented By: ELLY Fentanyl Citrate (Fentanyl Citrate 100 Mcg/2 Ml Vial) Confirm Administered Dose 100 mcg .ROUTE .STK-MED ONE Stop: 06/08/22 11:38 Last Admin: 06/08/22 12:30 Dose: Not Given Documented By: ELLY Heparin Sodium (Porcine) (Heparin (Porcine) 1000 Unit/Ml 10 Ml ([facility] Use Only)) Confirm Administered Dose 10,000 units .ROUTE .STK-MED ONE Stop: 06/08/22 10:30 Last Admin: 06/08/22 12:30 Dose: Not Given Documented By: ELLY Heparin Sodium/Sodium Chloride (Heparin In Nss Infusion 1000 Unit/500 Ml (2 U/Ml) Bag) Confirm Administered Dose 3,000 units IV .STK-MED ONE Stop: 06/08/22 10:31 Last Admin: 06/08/22 12:30 Dose: Not Given Documented By: ELLY Lidocaine HCl (Xylocaine 1%/Sod Bicarb 20 Ml Vial) Confirm Administered Dose 20 ml INFIL .STK-MED ONE Stop: 06/08/22 10:25 Last Admin: 06/08/22 12:29 Dose: Not Given Documented By: ELLY Lidocaine/Epinephrine (Lido/Epinephrine/Sod Bicarb 20 Ml Vial) Confirm Administered Dose 20 ml INFIL .STK-MED ONE Stop: 06/08/22 10:25 Last Admin: 06/08/22 10:45 Dose: 20 ml Documented By: AM Midazolam HCl (Midazolam Hcl 1 Mg/Ml 2ml Vial) Confirm Administered Dose 2 mg .ROUTE .STK-MED ONE Stop: 06/08/22 10:26 Last Admin: 06/08/22 12:30 Dose: Not Given Documented By: ELLY Midazolam HCl (Midazolam Hcl 1 Mg/Ml 2ml Vial) Confirm Administered Dose 2 mg .ROUTE .STK-MED ONE Stop: 06/08/22 13:49 Last Admin: 06/08/22 15:08 Dose: 2 mg Documented By: FLACO Miscellaneous (Rapid Sequence Induction Bag) Confirm Administered Dose 1 each .ROUTE .STK-MED ONE Stop: 06/08/22 10:09 Last Admin: 06/08/22 12:29 Dose: Not Given Documented By: ELLY Nicardipine HCl (Nicardipine Hcl Inj 2.5 Mg/Ml 10 Ml Amp) Confirm Administered Dose 25 mg .ROUTE .STK-MED ONE Stop: 06/08/22 10:30 Last Admin: 06/08/22 12:30 Dose: Not Given Documented By: ELLY Nitroglycerin/Dextrose (Nitroglycerin/D5w 100mcg/Ml 20ml Syr) Confirm Administered Dose 2,000 mcg .ROUTE .STK-MED ONE Stop: 06/08/22 10:31 Last Admin: 06/08/22 12:30 Dose: Not Given Documented By: ELLY Critical Care Time Critical Care Time: Yes Total Critical Care Time: 30 Due to the patient's third-degree heart block the fact that she presented criti humberto ill and needed to go emergently for a ventricular pacemaker, consultation with cardiology and ICU and discussion with the family, I have personally spent greater than 30 minutes of critical care time in the direct management of this patient. This includes bedside care, interpretation of diagnostic studies, and testing, discussion with consultants, patient, and family members, and other required patient management activities. This 30 minutes is in excess of all separately billable procedures. Medical Decision Making Differential Diagnosis Third Degree heart block, bradycardia, acute coronary syndrome, arrhythmia, Lyme disease, electrolyte or metabolic abnormality, infection Medical Records Attestation: I reviewed the patient's medical records. Home Medications Current Medication List: was personally reviewed by me Laboratory Data Attestation: I reviewed the patient's lab results. Result diagrams: 06/08/22 11:04 06/08/22 11:04 Lab Results 06/08/22 06/08/22 06/08/22 Range/Units 10:17 11:04 11:04 WBC 15.47 H (4.8-10.8) K/ul RBC 4.31 (3.93-5.22) M/uL Hgb 12.6 (12.0-16.0) g/dl Hct 39.2 (34.1-44.9) % MCV 91.0 (80.0-100.0) fL MCH 29.2 (25.0-34.0) pg MCHC 32.1 (32.0-36.0) g/dL RDW Std Deviation 41.8 (36.4-46.3) fL RDW Coeff of Marek 12.6 (11.5-14.5) % Plt Count 309 (130-400) K/uL MPV 10.6 (9.4-12.3) fL Immature Gran % (Auto) 0.6 % Neut % (Auto) 74.7 % Lymph % (Auto) 16.7 % Mcintosh % (Auto) 6.9 % Eos % (Auto) 0.6 % Baso % (Auto) 0.5 % Neut # (Auto) 11.53 H (1.4-6.5) K/uL Lymph # (Auto) 2.59 (1.2-3.4) K/uL Mcintosh # (Auto) 1.07 H (0.24-0.82) K/uL Eos # (Auto) 0.10 (0-0.50) K/uL Baso # (Auto) 0.08 (0-0.2) K/uL Immature Gran # (Auto) 0.10 H (0.00-0.02) K/uL PT 10.5 (9.0-12.0) Seconds INR 1.0 (0.9-1.1) APTT 23.9 (21.0-31.0) Seconds PTT Ratio 0.9 Sodium (136-145) mmol/L Potassium (3.5-5.1) mmol/L Chloride (98-107) mmol/L Carbon Dioxide (21-32) mmol/L Anion Gap (3-11) BUN (6-23) mg/dl Creatinine (0.6-1.2) mg/dl Est Cr Clr Drug Dosing Est GFR ( Amer) ml/min Est GFR (Non-Af Amer) ml/min BUN/Creatinine Ratio (10-20) Glucose (70-99(Fasting)) mg/dl POC Glucose 189 H (70-99) mg/dl Calcium (8.5-10.1) mg/dl Total Bilirubin (0.2-1.0) mg/dl AST (13-39) U/L ALT (7-52) U/L Alkaline Phosphatase (34-104) U/L Troponin I High Sens (0-14) pg/ml Total Protein (6.0-8.3) gm/dl Albumin (3.4-5.0) gm/dl Globulin (2.5-4.0) gm/dl Albumin/Globulin Ratio (0.9-2) Lipase (11-82) U/L TSH (0.300-4.500) uIu/ml Lyme Disease IgG Ab (Negative) Lyme Disease IgM Ab (Negative) 06/08/22 06/08/22 06/08/22 Range/Units 11:04 11:04 11:04 WBC (4.8-10.8) K/ul RBC (3.93-5.22) M/uL Hgb (12.0-16.0) g/dl Hct (34.1-44.9) % MCV (80.0-100.0) fL MCH (25.0-34.0) pg MCHC (32.0-36.0) g/dL RDW Std Deviation (36.4-46.3) fL RDW Coeff of Marek (11.5-14.5) % Plt Count (130-400) K/uL MPV (9.4-12.3) fL Immature Gran % (Auto) % Neut % (Auto) % Lymph % (Auto) % Mcintosh % (Auto) % Eos % (Auto) % Baso % (Auto) % Neut # (Auto) (1.4-6.5) K/uL Lymph # (Auto) (1.2-3.4) K/uL Mcintosh # (Auto) (0.24-0.82) K/uL Eos # (Auto) (0-0.50) K/uL Baso # (Auto) (0-0.2) K/uL Immature Gran # (Auto) (0.00-0.02) K/uL PT (9.0-12.0) Seconds INR (0.9-1.1) APTT (21.0-31.0) Seconds PTT Ratio Sodium 135 L (136-145) mmol/L Potassium 3.9 (3.5-5.1) mmol/L Chloride 103 (98-107) mmol/L Carbon Dioxide 24 (21-32) mmol/L Anion Gap 8 (3-11) BUN 17 (6-23) mg/dl Creatinine 0.96 (0.6-1.2) mg/dl Est Cr Clr Drug Dosing Not Reportable Est GFR ( Amer) 65.7 ml/min Est GFR (Non-Af Amer) 56.6 ml/min BUN/Creatinine Ratio 17.7 (10-20) Glucose 258 H (70-99(Fasting)) mg/dl POC Glucose (70-99) mg/dl Calcium 9.4 (8.5-10.1) mg/dl Total Bilirubin 0.5 (0.2-1.0) mg/dl AST 26 (13-39) U/L ALT 26 (7-52) U/L Alkaline Phosphatase 79 (34-104) U/L Troponin I High Sens 26.4 H (0-14) pg/ml Total Protein 6.8 (6.0-8.3) gm/dl Albumin 4.0 (3.4-5.0) gm/dl Globulin 2.8 (2.5-4.0) gm/dl Albumin/Globulin Ratio 1.4 (0.9-2) Lipase 47 (11-82) U/L TSH 3.425 (0.300-4.500) uIu/ml Lyme Disease IgG Ab Negative (Negative) Lyme Disease IgM Ab Negative (Negative) ECG Data Attestation: I personally reviewed and interpreted this ECG as follows: Indication: + altered mental status, + bradycardia and + weakness Rate (beats per minute): 51 Rhythm: + junctional and + other (Poor baseline due to artifact so difficult to interpret) ECG Intervals/blocks: + IVCD ECG Nichols: + Normal ECG ST segments: + Normal ST segments ECG Findings: + Other (Wide-complex. Suspect third-degree heart block based on the rhythm strips) Comparison ECG Date: from (04/29/22) Change: the following changes noted (Third-degree heart block has replaced normal sinus) MDM Narrative This patient comes in as described above. She had a syncopal episdoe and was noted to be in third-degree heart block on a prehospital EKG. I did give ALS medical command to give her atropine put in a pacemaker and established an IV. I did call Dr. Abbasi from cardiology and let him know when he arrived as well and the patient showed up. When she showed up they were bagging her as she became less responsive she did have a pulse of 20 however she was not perfusing well so we did give her epi 1 mg IV with this she woke up and was moving focally and talking. I was about to intubate her but she responded well to the epi and the [facility] arrived and they do want to take her up to the [facility]. we did establish an IO for further IV access we have not got blood work yet we will let the [facility] know about this they said they can get an i-STAT blood work and check a potassium and electrolytes when they put a sheath in. Dr. Cox from the ICU also arrives as the patient will be going to the ICU after the [facility]. The patient was sent emergently to the [facility] for pacemaker for third-degree heart block. I did also talk to the and son at length. Continuous cardiac monitoring: Orders placed in EMR for continuous cardiac monitoring. Upon my interpretation she was noted to have a third-degree heart block Impression & Plan Third degree heart block, Altered consciousness, Diabetes mellitus, Lab test negative for COVID-19 virus Discharge Plan Visit Data Chief Complaint: Syncope Stated Complaint: SYNCOPE, BRADYCARDIA ED Provider: Jose Oconnor Discharge Problem: Third degree heart block, Altered consciousness, Diabetes mellitus, Lab test negative for COVID-19 virus Patient Disposition: Admitted As Inpatient Discharge Instructions Interventions: ED Discharge Assessment Last Done: 06/08/22 10:55 : Diabetes mellitus Qualifiers: Diabetes mellitus type: type 2 Diabetes mellitus mcc insulin use: with mcc use Diabetes mellitus complication status: without complication Qualified Code(s): E11.9 - Type 2 diabetes mellitus without complications
--- NOTE | 2022-06-08 11:15 | History & Physical Report ---
Date of Service June 08, 2022 Assessment & Plan (1) Third degree heart block: Plan: -Admit to the ICU -Patient was found to be in complete heart block and taken emergently to the Print Decorator for transvenous pacer placement -No reported complications during pacer placement -Pacer currently set to VVI with rate of 80 and MA of 10 -Patient will be on temporary pacer until she can be evaluated by EP for permanent pacer placement -Currently alert, oriented, afebrile, hemodynamically stable, and stable on room air -Confirmed with ICU Provider, Dr. Cox, that they are aware of patient, ICU consult placed -Trend troponin q6h x 3 and can stop if stable or downtrending -Post placement CXR reviewed and negative for pneumothorax -Lyme IgG and IgM negative -AM CBC, BMP, PT/INR (2) Altered consciousness: Plan: -Noted to be obtunded on arrival to the ED, likely due to hypoperfusion and hypoxia from heart block -No alert and oriented after transvenous pacer placement (3) Moderate persistent asthma: Plan: -Continue SURFACE LAY OUT TECHNICIAN albuterol (4) Type 2 diabetes mellitus: Plan: -Patient normally on 38 units of Glargine daily in the AM, will reduce to 17 units in the AM until patient is eating consisently -Correction factor of 20 and hold carb ratio until she is eating consistently (5) Dyslipidemia: Plan: -SURFACE LAY OUT TECHNICIAN statin (6) Hypertension: Plan: -Hold SURFACE LAY OUT TECHNICIAN antihypertensives for now until she is stable Plan The patient was discussed with Dr. Ha at the time of admission History of Present Illness Chief Complaint: Syncope and bradycardia Primary Care Provider: DO Adeline Marrufo is a 76 year old female with a PMH significant for aortic valve sclerosis, bifascicular heart block, CAD, dyslipidemia, HTN, pulmonary HTN with pulmonary nodules, and DM II who presented to the [facility] ED via EMS. Prior to EMS arrival they alerted the ED that the patient had a syncopal episode and was found to be in complete heart block. EMS gave the patient atropine prior to arrival and the patient was taken emergently to the laboratory specialist for placement of transvenous pacemaker. Per the post-procedure report, the patient was placed on Dopamine during the procedure at 15 mcg/kg per min for blood pressure support. Patient was seen after pacemaker placement in the ICU, she was resting in bed in no acute distress. She states that she was in her normal state of health this am and does remember losing consciousness. She states that at the present time she is feeling "crummy", she elaborated by saying that she is having nausea and generally feeling unwell. She is completely alert and oriented at the time of the exam. Upon inspection of her transvenous pacer box her rate is currently set to 80 with an MA of 10, currently set to VVI and firing/capturing adequately. Allergies Allergy/AdvReac Type Severity Reaction Status Date / Time doxycycline Allergy Intermediate ASTHMA Verified 05/11/22 09:43 ATTACK, HIVES Sulfa (Sulfonamide Allergy Intermediate SWELLING Verified 05/11/22 09:43 Antibiotics) AND REDNESS, EYES SWELLED latex Allergy Mild SKIN Verified 05/11/22 09:43 IRRITATION-RASH atorvastatin AdvReac Mild Muscle Pain Verified 05/11/22 09:43 metformin AdvReac Mild Gastrointestinal Verified 05/11/22 09:43 Upset Home Medications Medication Instructions Recorded Confirmed Type albuterol sulfate 90 mcg/actuation 2 puffs inhalation Q6H PRN 04/26/19 05/11/22 Rx aerosol inhaler (ProAir HFA) shortness of breath or wheezing #6.7 grams BD Insulin Syringe Ultra-Fine 0.5 #100 ea 01/03/20 03/17/22 Rx mL 31 gauge x 5/16" (insulin syringe-needle U-100) lancets 32 gauge #300 ea 04/27/20 05/11/22 Rx blood sugar diagnostic (FreeStyle #400 ea 07/13/20 03/17/22 Rx Lite Strips) cholecalciferol (vitamin D3) 25 50 mcg PO QAM 08/30/21 05/11/22 History mcg (1,000 unit) capsule (Vitamin D3) cinnamon bark 500 mg capsule 2,000 mg PO QAM 08/30/21 05/11/22 History (Cinnamon) vitamin B complex 1 tab PO QAM 08/30/21 05/11/22 History insulin aspart U-100 100 unit/mL 0 unit subcut UD 09/02/21 05/11/22 History (3 mL) subcutaneous pen (Novolog Flexpen U-100 Insulin aspart) flash glucose sensor (FreeStyle #1 ea 10/21/21 05/11/22 Rx Devi 2 Sensor kit) lisinopril 10 mg tablet 10 mg PO QAM 12/02/21 05/11/22 History metoprolol succinate 25 mg 25 mg PO QAM 12/02/21 05/11/22 History tablet,extended release 24 hr pen needle, diabetic 31 gauge x #360 ea 12/02/21 05/11/22 Rx 3/16" (BD Ultra-Fine Mini Pen Needle) insulin glargine 100 unit/mL (3 38 unit subcut QAM 01/14/22 05/11/22 History mL) subcutaneous pen (Basaglar KwikPen U-100 Insulin) omalizumab 150 mg subcutaneous 300 mg subcut Q4WK #1 ea 02/02/22 05/11/22 Rx solution (Xolair) tramadol 50 mg tablet 25 mg PO Q8H PRN pain #30 tabs 03/07/22 05/11/22 Rx acetaminophen 500 mg tablet 1,000 mg PO Q6H PRN Pain 04/27/22 05/11/22 History cranberry concentrate-ascorbic 2 cap PO QAM 04/27/22 05/11/22 History acid 420 mg-100 mg capsule rosuvastatin 10 mg tablet (Crestor) 10 mg PO QAM 04/27/22 05/11/22 History Metamucil 05/02/22 05/11/22 History diphenoxylate-atropine 2.5 tab PRN Diarrhea 05/02/22 05/11/22 History mg-0.025 mg tablet (Lomotil) Compound Pain Cream topical PRN 05/11/22 History aspirin 81 mg tablet,delayed 81 mg PO DAILY #30 tabs 05/11/22 05/11/22 Rx release Past Med/Surg History Medical History (Updated 06/08/22 @ 16:51 by Jose Manuel Sanchez MD, PhD) Aortic valve sclerosis follows with [facility], last echo 08/18/21 Asthma controlled, stable per pt-last rescue inhaler use several months ago Bifascicular block CAD (coronary artery disease) [place] [facility] [place] Mid LAD 40%. D1 ostial/proximal 60%. Ostial OM1 70%. Small RCA. Proximal RCA 40%. Mid RCA 50%. EF 65%-no stents, follows with [facility] CAD (coronary artery disease) Cardiac murmur slight systolic murmur noted on 05/02/22 PAT exam; sclerotic aortic valve without sig stenosis per 08/18/21 echo Carotid bruit none heard on exam at 05/02/22 PAT appt; pt denies carotid ultrasound Chronic idiopathic urticaria follows with [facility] technician inventory specialist COVID-19 HX AUG AND - MONOCLONAL ANTIBODY TX; hospitalized day #14 of covid for severe UTI, "not for covid" Dyslipidemia Eczema History of anesthesia reaction "RASH, SWELLING, HIVES" AFTER L breast lumpectomy 2009-pt states is very sensitive to many medications, follows with [facility] inventory specialist History of blood transfusion in teenage years d/t menorrhagia Hx of eye disorder "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, currently being monitored by my retina specialist in [place]" Hypertension controlled, stable per pt IBS (irritable bowel syndrome) Mild concentric left ventricular hypertrophy (LVH) Obstructive airway disease asthma per pt Pulmonary hypertension mild per 08/2021 echo, RVSP 39 mmHg Pulmonary nodules 6 mm nodule LLL, slight increase in a 12 mm branching tubular structure RLL-[address] recommended per report for stability assessment of nodules and lymphadenopathy Type 2 diabetes mellitus IDDM Surgical History History of cardiac cath Cardiac catheterization [facility] [place]: Mid LAD 40%. D1 ostial/proximal 60%. Ostial OM1 70%. Small RCA. Proximal RCA 40%. Mid RCA 50%. EF 65%. No or MR. PCWP 16. PA pressure 32/16 with a mean of 21. PVR 1.1. Cardiac index 2.4. LVEDP 18. "medical therapy was recommended" History of cataract surgery RT History of cholecystectomy History of colonoscopy History of lumpectomy BREAST, MULTIPLE TIMES - BENIGN Hx of arthroscopic knee surgery Lt. Family History Father Diabetes Coronary heart disease Bronchitis Asthma Mother Coronary heart disease Arthritis Cancer Hypertension Stroke Uncle Diabetes Grandmother Family history of colon cancer Other Family history of stomach cancer Social History Smoking Status: Never smoker Second Hand Exposure: No; Hx Alcohol Use: No Hx Substance Use: No Preferred Language: Salvadorean Communication Ability: Effective Final Inspector Movement Assembly Required: No Beliefs That Will Affect Care: Nondenominational Nondenominational Beliefs: Caodaism marital status: Current Living Situation: Spouse Feels Safe at Home: Yes Assistive Devices: Denture - Upper, Denture - Lower and Walker Review of Systems Review of Systems: Denies current fever, chills, headache, changes in vision, hearing, taste, and smell, chest pain, SOB, cough, abdominal pain, nausea, hematemesis, melena, dysuria, hematuria, and recent falls. All systems have been reviewed and are otherwise negative. Physical Exam Physical Exam: Physical Exam: General: In no acute distress, stated age, well-nourished, good hygiene HEENT: Normocephalic, atraumatic, no scleral icterus, pupils around round, symmetrical, and reactive to light, moist mucus membranes, trachea midline, no thyromegaly Chest/Pulm: No respiratory distress, symmetrical chest expansion, clear breath sounds throughout Cardiac: RRR, no murmurs noted Abdomen: Negative for ascites and bruising, normoactive bowel sounds, soft, non-tender to palpation throughout Musculoskeletal: Symmetrical and without signs of acute trauma, upper and lower extremities with full ROM, no atrophy, spasticity, or flaccidity Extremities: Patient with transvenous pacer with entry in the right upper thigh which is currently in place and without signs of bleeding, radial DP, and PT pulses are regular and symmetrical, no edema noted in the BL LEs Skin: Warm, dry, no rashes , lesions, or scars noted Neuro: Alert and oriented to person, place, month, year, and president, no focal defects, CN II-XII tested and intact, no tremors noted Psych: No acute distress, calm and cooperative during the exam Results & Data Results & Data ([facility]) Vital Signs (Past 12 Hours) Vital Signs Pulse Resp Pulse Ox 06/08/22 10:20 160 H 32 H 100 06/08/22 10:16 31 L 14 100 06/08/22 10:15 43 L 27 H Laboratory Results Abnormal lab results 06/08/22 06/08/22 06/08/22 Range/Units 10:17 11:04 11:04 WBC 15.47 H (4.8-10.8) K/ul Neut # (Auto) 11.53 H (1.4-6.5) K/uL [place] # (Auto) 1.07 H (0.24-0.82) K/uL Immature Gran # (Auto) 0.10 H (0.00-0.02) K/uL Sodium 135 L (136-145) mmol/L Glucose 258 H (70-99(Fasting)) mg/dl POC Glucose 189 H (70-99) mg/dl Troponin I High Sens 26.4 H (0-14) pg/ml ECG Additional Comments: Wide QRS rhythm Left axis deviation Left ventricular hypertrophy with QRS widening Inferior infarct , age undetermined Anterolateral infarct , age undetermined Abnormal ECG When compared with ECG of 14-JAN-2022 07:34, Wide QRS rhythm has replaced Sinus rhythm Code Status & VTE Plan Code Status Full Code VTE Prophylaxis Plan VTE Prophylaxis will be ordered: Yes Supervising Physician Co-Signing Physician Notes I supervised NABEEL Sevilla on this admission. I interviewed and examined the patient independently of him. The plan is as written in his note except for any following changes/exceptions: None 76yo F w/ 3rd degree heart block. Seen after going to semiconductor lab technician for transvenous pacer placement. Capture seems good, HR now 80 bpm with 1:1 capture. Plan for stay in ICU, then EP consult and permanent pacer. PG Care Time/CCT Total # of Minutes Spent Total Time Spent with Patient: Total time spent is greater than 50% in coordination of care (as documented) at patient's floor/unit and/or counseling patient: Coding [place] [address] Initial Inpt Care Lvl 3 Patient Type Established Medical Decision Making Moderate Complexity Diagnoses Third degree heart block I44.2 Altered consciousness R40.4 Moderate persistent asthma J45.40 Type 2 diabetes mellitus E11.9 Dyslipidemia E78.5 Hypertension I10
[2022-06-08 11:28] LABS: Basophils # (auto) 0.08 K/uL (0-0.2); Basophils % (auto) 0.5 %; Eosinophils % (auto) 0.6 %; Hematocrit (blood only) 39.2 % (34.1-44.9); Hemoglobin 12.6 g/dl (12.0-16.0); Immature Granulocytes % (auto) 0.6 %; Lymphocytes # (auto) 2.59 K/uL (1.2-3.4); Lymphocytes % (auto) 16.7 %; Mean Corpuscular Hemoglobin 29.2 pg (25.0-34.0); Mean Corpuscular Hgb Conc 32.1 g/dL (32.0-36.0); Mean Platelet Volume 10.6 fL (9.4-12.3); Monocytes # (auto) 1.07 K/uL (0.24-0.82); Monocytes % (auto) 6.9 %; Neutrophils # (auto) 11.53 K/uL (1.4-6.5); Neutrophils % (auto) 74.7 %; Platelet Count 309 K/uL (130-400); RDW Coefficient of Variation 12.6 % (11.5-14.5); RDW Standard Deviation 41.8 fL (36.4-46.3); Red Blood Count 4.31 M/uL (3.93-5.22); White Blood Count 15.47 K/ul (4.8-10.8)
[2022-06-08 11:39] LABS: Partial Thromboplastin Ratio 0.9; Partial Thromboplastin Time 23.9 Seconds (21.0-31.0); Prothrombin Time 10.5 Seconds (9.0-12.0)
--- NOTE | 2022-06-08 11:54 | Pre Anesthesia Assessment ---
Date of Service June 08, 2022 Pre Sedation Assessment Vital Signs Pulse Resp Pulse Ox 06/08/22 10:20 160 H 32 H 100 06/08/22 10:16 31 L 14 100 06/08/22 10:15 43 L 27 H Cardiovascular + bradycardic (complete heart block.) + S1 normal and + S2 normal Respiratory + respiratory effort normal + rales Pre-Sedation Airway Assessment Smoking Status: Unknown if ever smoked Mallampati Class: III Class IV Notes The planned sedation has been discussed with the patient. Informed Consent was obtained. I have identified the patient, determined the appropriateness of sedation and have assessed the patient immediately prior to the procedure. All medicine(s) and interventions are by my order.
[2022-06-08 11:56] LABS: Alanine Aminotransferase 26 U/L (7-52); Albumin Globulin Ratio 1.4 (0.9-2); Alkaline Phosphatase 79 U/L (34-104); Anion Gap 8 (3-11); Aspartate Aminotransferase 26 U/L (13-39); BUN Creatinine Ratio 17.7 (10-20); Bilirubin,Total 0.5 mg/dl (0.2-1.0); Blood Urea Nitrogen 17 mg/dl (6-23); Calcium 9.4 mg/dl (8.5-10.1); Carbon Dioxide 24 mmol/L (21-32); Chloride 103 mmol/L (98-107); Est GFR (African American) 65.7 ml/min; Est GFR (Non-African American) 56.6 ml/min; Globulin 2.8 gm/dl (2.5-4.0); Glucose 258 mg/dl (70-99(Fasting)); Lipase 47 U/L (11-82); Potassium 3.9 mmol/L (3.5-5.1); Sodium 135 mmol/L (136-145); Total Protein 6.8 gm/dl (6.0-8.3); Troponin I High Sensitivity 26.4 pg/ml (0-14)
[2022-06-08] MEDS ORDERED: SODIUM CHLORIDE 0.9% 1000ML 1,000 ML IV SCH (12:00)
--- NOTE | 2022-06-08 12:00 | History & Physical Bridge Note ---
Date of Service June 08, 2022 History & Physical Bridge Note Patient arrived via ambulance to ED. Reportedly with syncopal event at home. Had complete heart block and SBP 90's initially but on arrival to ED BP not obtainable. Pulse noted by palpation and ED staff initiated resuscitation. Patient arrived in laboratory specialist able to speak but no BP on monitor. Her HR was 30's and CHB noted on monitor. We proceeded emergently for TVPM placement and cath to eclude occlusive CAD. She denies chest pain. See physical exam from ED note. Limited cardiac exam reveals: bradycardia, regular rhythm. 3:1 heart block with intermittent CHB. No murmur appreciated. On facemask with waxing and waning alertness. No rspiratory distress.
[2022-06-08] MEDS ORDERED: CARBOHYDRATES FOR HYPOGLYCEMIA PO PRN (12:11)
[2022-06-08] MEDS ORDERED: GLUCOSE 10 TAB/TUBE PO PRN (12:11)
[2022-06-08] MEDS ORDERED: GLUCAGON FOR INJ 1 MG VIAL SQ PRN (12:11)
[2022-06-08] MEDS ORDERED: ICU PROTOCOL FOR HYPERGLYCEMIA PRN (12:11)
[2022-06-08] MEDS ORDERED: DEXTROSE 50% 50 ML SYRINGE IV PRN (12:11)
[2022-06-08] MEDS ORDERED: GLUCOSE 40% GEL 15 GM TUBE PO PRN (12:11)
[2022-06-08 12:13] LABS: Lyme Ab IgG w/WB Rflx Negative (Negative); Lyme Ab IgM w/WB Rflx Negative (Negative)
--- NOTE | 2022-06-08 12:16 | Cardiac Catheterization ---
[facility] Data: Vice President Sales Cardiac Status Clinical evaluation leading to the procedure Bradycardia/complete heart block CAD Presenation: No Sxs, No angina Coronary Anatomy Left Main (% Stenosis): Normal LAD (% Stenosis): Normal D1 (% Stenosis): Normal D2 (% Stenosis): Normal Circumflex (% Stenosis): Normal RCA (% Stenosis): Normal Diagnostic Physicians Name: Jose Manuel Sanchez MD, PhD Closure Device Recommendations: Management Recommendatons (Patient is undergoing work-up for bradycardia not ischemia related. Likely for permanent pacemaker implantation.) Cardiac Cath Procedure Full Procedure Date June 08, 2022 Pre-Procedure Diagnosis Pre-Procedure Diagnosis: Arrhythmia (High-grade AV block) AUC Score AUC Score: 08 Post-Procedure Diagnosis Post-Procedure Diagnosis: Mild CAD Procedure(s) Performed Procedure(s) Performed: Coronary Angiography, Temporary Pacemaker and Ultrasound Guided Vascular Access Assistant Sales Director Jose Manuel Sanchez MD, PhD Estimated Blood Loss Estimated Blood Loss: 10 mL Summary of Findings Left main: Large-caliber vessel which trifurcates into LAD, left circumflex, and ramus intermedius. Mild distal calcification and mild luminal irregularities. LAD: Large caliber and transapical vessel. Provides several large septal branches, a large caliber branching first diagonal, and a small to medium caliber branching second diagonal. Proximal and early mid LAD have mild diffuse calcification. There is also mild disease less than 20% narrowing in the midsegment. The remainder of the LAD and its branches have no more than mild luminal irregularities. LCx: Large caliber and codominant vessel. Travels in the AV groove where the proximal segment has diffuse mild disease of less than 30% narrowing. First obtuse marginal branch is large with multi branches. It has diffuse mild disease. Mid circumflex has large caliber in the AV groove with mild disease. Provides an atrial branch and then a small caliber second obtuse marginal. In the early distal AV groove circumflex has a focal 40 to 50% narrowing. The vessel continues beyond this terminating in a bifurcating PDA which is relatively small in caliber. There is diffuse mild disease. RCA: Medium to large caliber and codominant. Provides several large RV marginal branches. Bifurcates distally into a large caliber PDA and a small to medium caliber branching posterior lateral. The ostium of the PDA has a focal 40% stenosis. The remainder of the RCA and its branches have diffuse mild disease. Transvenous pacemaker lead in the right ventricle: Lead not at the apex. Good capture: 10 mA, heart rate 80 bpm Brief description: Patient was brought to the cardiac catheterization suite where she was shaved and prepped in a sterile fashion. Soft tissues of the right groin were anesthetized using 20 mL 1% Xylocaine. Using ultrasound for guidance, the right femoral artery was accessed and a 6 [place] femoral artery sheath was placed. Then, using the ultrasound for guidance, the right femoral vein was accessed and a 6 [place] femoral venous sheath was placed. We proceeded first with temporary pacer insertion. With significant difficulty we were able to advance a 5 [place] temporary pacing catheter to the right ventricle. Successful pacing at 100 bpm and 10 mA was initiated. This resulted in improved blood pressure and improved alertness of the patient. The pacing wire was not on the septum but was functioning properly. We therefore proceeded with coronary angiography to exclude ACS as etiology for complete heart block. Left coronary angiography in orthogonal views with a 5 [place] JL 4 diagnostic catheter. Right coronary angiography in orthogonal views with a 5 [place] JR4 diagnostic catheter. Diagnostic catheters were removed. Limited right femoral artery angiography was performed to evaluate for closure. Findings were favorable, therefore, the femoral artery sheath was removed and hemostasis was obtained using a 6 [place] Angio-Seal closure device. This was deployed in the recommended fashion. We obtained immediate hemostasis and the patient remained hemodynamically stable. The femoral venous sheath was sutured in place and then the temporary pacing wire was fixed using a Tegaderm. The heart rate setting was reduced to 80 bpm. Patient remained hemodynamically stable. She was therefore returned to the recovery area in stable condition. This ended the case. Hemodynamics Rest Ao:: 128/48 mmHg Final Ao: 133/62 mmHg LV: Not performed Recommendations Recommendations: Management Recommendatons (Patient is undergoing work-up for bradycardia not ischemia related. Likely for permanent pacemaker implantation.) Radiation Exposure (mGy) 1680 mGy Contrast (mls) 53 Anesthesia Fentanyl 50 mcg Procedural Complication(s) None I attest to the content of the Intraoperative Record and any orders documented therein. Any exceptions are noted below. PG Care Time/CCT Total # of Minutes Spent Total Time Spent with Patient: Total time spent is greater than 50% in coordination of care (as documented) at patient's floor/unit and/or counseling patient:
[2022-06-08] MEDS ORDERED: ONDANSETRON INJ 2 MG/ML 2 ML VIAL IV PRN (12:45)
--- NOTE | 2022-06-08 12:53 | XRay Report ---
XR chest 1V portable HISTORY: Atypical chest pain. On arrival to ICU, nursing to call when arrives COMPARISON: Chest 05/02/2022. FINDINGS: No focal lung consolidations to suggest pneumonia. No evidence for pulmonary edema. No pleu ral effusions. No pneumothorax. The cardiac silhouette remains top normal in size. Old, healed right- sided rib fractures again noted. IMPRESSION: No significant change compared to the prior study. No acute process. ACT 112: Negative or not required by law. Electronically signed by: Martínez Hayes M.D. 06/08/2022 12:52 PM
[2022-06-08] MEDS: INSULIN ASPART PER UNIT SC SCH ×3 (13:09→20:41)
[2022-06-08] MEDS ORDERED: ceFAZolin 330 MG/ML 1 GM VIAL ONE (13:48)
[2022-06-08] MEDS ORDERED: WATER, STERILE FOR INJ 10 ML VIAL ONE (13:49)
[2022-06-08] MEDS ORDERED: LIDOCAINE 1% LOCAL 20 ML VIAL ONE (13:49)
[2022-06-08] MEDS ORDERED: VANCOMYCIN HCL 1000MG/20ML VIAL ONE (13:50)
[2022-06-08] MEDS ORDERED: BUPIVACAINE 0.25% 30 ML VIAL ONE (13:50)
--- NOTE | 2022-06-08 13:53 | Pre Anesthesia Assessment ---
Date of Service June 08, 2022 Pre Sedation Assessment Vital Signs Pulse Resp BP Pulse Ox O2 Del Method O2 Flow Rate 06/08/22 12:47 80 15 92/52 L 100 Nasal Cannula 4 06/08/22 12:45 80 14 76/51 L 99 Nasal Cannula 4 06/08/22 12:35 80 15 105/47 L 99 Nasal Cannula 4 06/08/22 12:30 80 18 98/51 L 99 Nasal Cannula 06/08/22 12:28 80 18 106/46 L 99 Nasal Cannula 06/08/22 12:26 80 23 106/54 L 98 Nasal Cannula 4 06/08/22 12:21 80 16 127/66 98 Nasal Cannula 06/08/22 12:15 83 19 124/52 L 98 Nasal Cannula 06/08/22 12:14 80 24 119/56 L 96 Nasal Cannula 4 06/08/22 12:00 80 19 137/55 L 97 Nasal Cannula 4 06/08/22 10:20 160 H 32 H 100 06/08/22 10:16 31 L 14 100 06/08/22 10:15 43 L 27 H Cardiovascular + regular rate and + regular rhythm Respiratory + respiratory effort normal Pre-Sedation Airway Assessment Smoking Status: Unknown if ever smoked Hx Sleep Apnea: No Hx Difficult Intubation: No Short, Thick Neck: No Thyromental Distance: > or= 3.5 Finger Breadths Mallampati Class: III ASA: ASA3 Procedure Planning Contraindications for Sedation: none Current Medications Reviewed: Yes Notes The planned sedation has been discussed with the patient. Informed Consent was obtained. I have identified the patient, determined the appropriateness of sedation and have assessed the patient immediately prior to the procedure. All medicine(s) and interventions are by my order.
--- NOTE | 2022-06-08 15:39 | Post Anesthesia Assessment ---
Date of Service June 08, 2022 Post Sedation Assessment Vital Signs Temp Pulse Resp BP Pulse Ox O2 Del Method O2 Flow Rate 06/08/22 13:30 36.1 C L 80 20 103/52 L 100 06/08/22 13:30 103/52 L 06/08/22 13:25 80 18 109/65 99 Room Air 06/08/22 13:15 80 22 93/54 L 99 Room Air 06/08/22 13:03 80 20 90/54 L 100 Nasal Cannula 4 06/08/22 12:15 Nasal Cannula 4 06/08/22 12:47 80 15 92/52 L 100 Nasal Cannula 4 06/08/22 12:45 80 14 76/51 L 99 Nasal Cannula 4 06/08/22 12:35 80 15 105/47 L 99 Nasal Cannula 4 06/08/22 12:30 80 18 98/51 L 99 Nasal Cannula 4 06/08/22 12:28 80 18 106/46 L 99 Nasal Cannula 4 06/08/22 12:26 80 23 106/54 L 98 Nasal Cannula 4 06/08/22 12:21 80 16 127/66 98 Nasal Cannula 4 06/08/22 12:15 83 19 124/52 L 98 Nasal Cannula 4 06/08/22 12:14 80 24 119/56 L 96 Nasal Cannula 4 06/08/22 12:00 80 19 137/55 L 97 Nasal Cannula 4 06/08/22 10:20 160 H 32 H 100 06/08/22 10:16 31 L 14 100 06/08/22 10:15 43 L 27 H Recovery Score Activity: Moves 4 extremities Respiration: Deep Breath/Cough Circulation: +/-20% PreAnes Value Consciousness: Arouseable (by name) Oxygen Saturation: > 92% On Room Air Discharge Sedation Level of Care: Fast Track Phase II Post Sedation Plan On clinical assessment, the patient appears to have tolerated the sedation without complications. Patient is recovering as anticipated. Patient will continue to be monitored by nursing and may be discharged when sedation discharge criteria are met per below protocol. Upon Completions of procedure up to 15 minutes continue every 5 minute vital signs and the P.A.R. score; then discharge to a Phase I or Fast Track to Phase II per the following guidelines: * Discharge Patient to appropriate Phase II area if PAR is 8 or greater or return to pre- procedure baseline. The post - procedure orders will be as directed. * If PAR score is less than 8 or not return to pre-procedure baseline then patient will follow Phase I monitoring till PAR is reached for Phase II. The Phase I may be done in procedure room or may call to secure a Phase I area. * If naloxone or flumazenil are used for reversal, hold in Phase I for continued monitoring from when last reversal dose was given for a minimum of 60 minutes or longer pending the nurse and/or physician discretion of patient condition before discharge to Phase II. Please call the Sedation Physician to re-evaluate and complete post-note for discharge to Phase II area. Do NOT discharge from procedure sedation or Phase 1 until post- sedation evaluation note is complete by procedure /sedation MD Sedation Discharge Instructions to be given to the patient at discharge to home.
--- NOTE | 2022-06-08 15:39 | Electrophysiology Report ---
Date of Service June 08, 2022 Electrophysiology Procedure Electrophysiology Procedure Report Procedure performed: Implantation of dual-chamber permanent pacemaker with left bundle pacing lead Staff yoke setter: Armond James MD Indication: The patient is a 68-year-old woman who presented to the emergency room with symptomatic bradycardia requiring resuscitation. She was noted to have complete heart block initially underwent implantation of a right femoral temporary pacing wire. After initial evaluation and stabilization the patient was brought back to the electrophysiology suite for placement of a permanent pacemaker due to symptomatic nonreversible AV node dysfunction. Dual-chamber device was selected that she is currently in sinus rhythm which to maintain AV synchrony. Procedure in detail: The patient was informed of the risks benefits and alternatives to the intended procedure and she wished to proceed. She was taken to the electrophysiology suite in a fasting state. A preoperative antibiotic had been administered. The patient was monitored electrocardiographically throughout today's procedure and conscious sedation was administered per protocol. The left upper pectoral area is prepped and draped in usual sterile fashion. This area was anesthetized using subcutaneous administration of a xylocaine solution. An incision was made at this site and carried down to the prepectoralis fascia using sharp dissection. Electrocautery was also employed for dissection as well as for hemostasis. A device pocket was fashioned tissues above the pectoralis muscle. Subsequent to this maneuver the left axillary vein was accessed using modified Seldinger technique. A sheath was placed over the initial guidewire and used facilitate passage of the guiding catheter for mapping of the interventricular septum. Once in appropriate location was identified the pacing lead was advanced into the interventricular septum. Adequate sensing threshold parameters were obtained prior to removal of the guiding catheter. The proximal portion lead was then sutured to the prepectoralis fascia using nonabsorbable suture. A sheath was placed over the remaining guidewire and used facilitate passage of the pacing lead to the right atrium under fluoroscopic guidance. Adequate sensing threshold parameters were obtained prior to active fixation of this lead to the endocardial surface. The proximal portion lead was then sutured to prepectoralis fascia using nonabsorbable suture. The previously placed temporary transvenous pacemaker was subsequently removed under fluoroscopic guidance. Access at the right femoral was also removed and hemostasis was ach ieved at this site using manual pressure. The device pocket was irrigated with antibiotic solution. The leads were then attached to the device. The device and leads were then placed in the pocket and pocket was closed in 3 layers of absorbable suture. Steri-Strips and sterile dressing were applied. The device was tested noninvasively prior to conclusion the procedure. The patient tolerated procedure well there no immediate complications. Equipment used: New pulse generator: Repeat Photocomposing Machine Operator [employer]. Model number: [id number] serial number [id number] Right atrial lead: Repeat Photocomposing Machine Operator [employer]. Model number: [id number] serial number [id number] Right ventricular lead: Repeat Photocomposing Machine Operator [employer]. Model number: 3830 serial number [id number] Measured data: Right atrial lead: P-waves measured 5.2 mV. Pacing threshold 1.6 volts at 0.5 milliseconds with a pacing impedance of 530 Ohms Right ventricular lead: No intrinsic R-waves. Pacing threshold was 0.3 volts at 0.5 millisecond with a pacing impedance of 988 Ohms Impression: Successful implantation of dual-chamber permanent pacemaker with left bundle pacing lead [facility] Electrophysiology codes Pacing Procedure 1: Pacin Insert/Replace Pacer A & V PG Moderate Sedation Codes Moderate Sedation Codes Procedure 1: Sedation/Anesthesia: 09570 Mod Sedation by the same physician;Init15 Min Child Age 5 & Up Procedure 2: Sedation/Anesthesia: 09327 Mod Sedation by the same physician; Ea [id number] Minutes
[2022-06-08] MEDS ORDERED: oxyCODONE HCL IR 5 MG TAB (IMMEDIATE RELEASE) PO PRN (15:42)
--- NOTE | 2022-06-08 16:32 | Cardiology Consultation ---
Date of Consultation June 08, 2022 Assessment & Plan (1) Dyslipidemia: Patient with diabetes which makes her high risk. Aggressive LDL reduction is recommended per current guidelines. High intensity statin therapy with Crestor 10 mg daily should continue. Present on Admission?: Yes (2) Hypertension: Blood pressure is well controlled at present. He is on a low-dose beta-comfort (metoprolol succinate ER 25 mg daily) and has tolerated this despite her asthma. We agreed that this should continue at current dose and there will be no risk of bradycardia after pacemaker implantation. Also continue lisinopril for blood pressure and renal plus cardiac protection in diabetic. Present on Admission?: Yes (3) Third degree heart block: Patient previously with bifascicular block now evidence that progressive conduction system disease leading to third-degree AV block. Cardiac cath did not suggest myocardial ischemia as etiology of high-grade AV block. Similarly, Lyme screen does not suggest bradycardia reversible by treatment of Lyme disease. Patient did not tolerate her bradycardia and therefore permanent pacemaker indicated. Last echocardiogram was August 2021. At that time, EF 70% with mild LVH, mild aortic sclerosis, and grade 1 diastolic dysfunction. Mild pulmonary hypertension was also suggested. We could consider repeat echocardiogram but it will be unlikely to change her management. Dr. Cunningham is her primary telegraph lineman and will see her tomorrow. He may decide that inpatient echo is warranted at this time. Present on Admission?: Yes (4) CAD (coronary artery disease): Mild nonocclusive coronary disease on catheterization. Prior catheterization in 2011 at [facility] suggested severe small branch disease not amenable to PCI. We will continue with guideline directed medical therapy for secondary prevention of coronary disease including low-dose aspirin, high intensity statin therapy, beta-comfort, and DAFNE inhibitor at current doses. Present on Admission?: Yes History of Present Illness Reason for Consultation: Syncope Third-degree heart block Attending Physician: Jose Manuel Sanchez MD, PhD History of Present Illness Pleasant 76-year-old female with prior cardiac history including bifascicular block, coronary artery disease, and mild pulmonary hypertension who sustained a syncopal episode while at home. EMS was called and on arrival patient was found to have heart rate in the 30s. Monitor demonstrated likely third-degree heart block. Twelve-lead EKG was transmitted to the emergency department confirming third-degree heart block. Initially, in route the patient's blood pressure was reasonably well-maintained with a systolic in the 90s and she was able to converse. However, upon arrival it was noted that she had become unresponsive and her blood pressure was not obtainable by noninvasive measures. Emergency department physician evaluated the patient determining that she did have a palpable pulse and resuscitation was initiated with medications. She was subsequently taken emergently to the cardiac catheterization suite where she underwent transvenous pacemaker insertion followed by diagnostic cardiac cath. We had adequate capture on pacing and her blood pressure improved as did her mental status. Interrogation of the patient on the cardiac cath table revealed that she had not been having any chest pain heaviness or tightness. No recent fevers or chills. No arthralgia and no rashes had been identified. Nonetheless, we did send a full panel of labs including a Lyme screen. I discussed the findings on catheterization as well as the patient's presentation with Dr. James (EP) who felt that she would benefit long-term with permanent pacemaker implantation. At this time, she is returned to the recovery area and is hemodynamically stable without symptoms. Allergies Allergy/AdvReac Type Severity Reaction Status Date / Time doxycycline Allergy Intermediate ASTHMA Verified 05/11/22 09:43 ATTACK, HIVES Sulfa (Sulfonamide Allergy Intermediate SWELLING Verified 05/11/22 09:43 Antibiotics) AND REDNESS, EYES SWELLED latex Allergy Mild SKIN Verified 05/11/22 09:43 IRRITATION-RASH atorvastatin AdvReac Mild Muscle Pain Verified 05/11/22 09:43 metformin AdvReac Mild Gastrointestinal Verified 05/11/22 09:43 Upset Home Medications Medication Instructions Recorded Confirmed Type albuterol sulfate 90 mcg/actuation 2 puffs inhalation Q6H PRN 04/26/19 05/11/22 Rx aerosol inhaler (ProAir HFA) shortness of breath or wheezing #6.7 grams BD Insulin Syringe Ultra-Fine 0.5 #100 ea 01/03/20 03/17/22 Rx mL 31 gauge x 5/16" (insulin syringe-needle U-100) lancets 32 gauge #300 ea 04/27/20 05/11/22 Rx blood sugar diagnostic (FreeStyle #400 ea 07/13/20 03/17/22 Rx Lite Strips) cholecalciferol (vitamin D3) 25 50 mcg PO QAM 08/30/21 05/11/22 History mcg (1,000 unit) capsule (Vitamin D3) cinnamon bark 500 mg capsule 2,000 mg PO QAM 08/30/21 05/11/22 History (Cinnamon) vitamin B complex 1 tab PO QAM 08/30/21 05/11/22 History insulin aspart U-100 100 unit/mL 0 unit subcut UD 09/02/21 05/11/22 History (3 mL) subcutaneous pen (Novolog Flexpen U-100 Insulin aspart) flash glucose sensor (FreeStyle #1 ea 10/21/21 05/11/22 Rx Devi 2 Sensor kit) lisinopril 10 mg tablet 10 mg PO QAM 12/02/21 05/11/22 History metoprolol succinate 25 mg 25 mg PO QAM 12/02/21 05/11/22 History tablet,extended release 24 hr pen needle, diabetic 31 gauge x #360 ea 12/02/21 05/11/22 Rx 3/16" (BD Ultra-Fine Mini Pen Needle) insulin glargine 100 unit/mL (3 38 unit subcut QAM 01/14/22 05/11/22 History mL) subcutaneous pen (Basaglar KwikPen U-100 Insulin) omalizumab 150 mg subcutaneous 300 mg subcut Q4WK #1 ea 02/02/22 05/11/22 Rx solution (Xolair) tramadol 50 mg tablet 25 mg PO Q8H PRN pain #30 tabs 03/07/22 05/11/22 Rx acetaminophen 500 mg tablet 1,000 mg PO Q6H PRN Pain 04/27/22 05/11/22 History cranberry concentrate-ascorbic 2 cap PO QAM 04/27/22 05/11/22 History acid 420 mg-100 mg capsule rosuvastatin 10 mg tablet (Crestor) 10 mg PO QAM 04/27/22 05/11/22 History Metamucil 05/02/22 05/11/22 History diphenoxylate-atropine 2.5 tab PRN Diarrhea 05/02/22 05/11/22 History mg-0.025 mg tablet (Lomotil) Compound Pain Cream topical PRN 05/11/22 History aspirin 81 mg tablet,delayed 81 mg PO DAILY #30 tabs 05/11/22 05/11/22 Rx release Patient History Medical History (Updated 06/08/22 @ 16:51 by Jose Manuel Sanchez MD, PhD) Aortic valve sclerosis follows with [facility], last echo 08/18/21 Asthma controlled, stable per pt-last rescue inhaler use several months ago Bifascicular block CAD (coronary artery disease) [place] [facility] [place]: Mid LAD 40%. D1 ostial/proximal 60%. Ostial OM1 70%. Small RCA. Proximal RCA 40%. Mid RCA 50%. EF 65%-no stents, follows with [facility] CAD (coronary artery disease) Cardiac murmur slight systolic murmur noted on 05/02/22 PAT exam; sclerotic aortic valve wit hout sig stenosis per 08/18/21 echo Carotid bruit none heard on exam at 05/02/22 PAT appt; pt denies carotid ultrasound Chronic idiopathic urticaria follows with [facility] caretaker COVID-19 HX AUG AND - MONOCLONAL ANTIBODY TX; hospitalized day #14 of covid for severe UTI, "not for covid" Dyslipidemia Eczema History of anesthesia reaction "RASH, SWELLING, HIVES" AFTER L breast lumpectomy 2009-pt states is very sensitive to many medications, follows with [facility] caret[facility] History of blood transfusion in teenage years d/t menorrhagia Hx of eye disorder "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, currently being monitored by my retina specialist in [place]" Hypertension controlled, stable per pt IBS (irritable bowel syndrome) Mild concentric left ventricular hypertrophy (LVH) Obstructive airway disease asthma per pt Pulmonary hypertension mild per 08/2021 echo, RVSP 39 mmHg Pulmonary nodules 6 mm nodule LLL, slight increase in a 12 mm branching tubular structure RLL-[address] recommended per report for stability assessment of nodules and lymphadenopathy Type 2 diabetes mellitus IDDM Surgical History History of cardiac cath Cardiac catheter[place] [facility] [place]: Mid LAD 40%. D1 ostial/proximal 60%. Ostial OM1 70%. Small RCA. Proximal RCA 40%. Mid RCA 50%. EF 65%. No or MR. PCWP 16. PA pressure 32/16 with a mean of 21. PVR 1.1. Cardiac index 2.4. LVEDP 18. "medical therapy was recommended" History of cataract surgery RT History of cholecystectomy History of colonoscopy History of lumpectomy BREAST, MULTIPLE TIMES - BENIGN Hx of arthroscopic knee surgery Lt. Family History Father Diabetes Coronary heart disease Bronchitis Asthma Mother Coronary heart disease Arthritis Cancer Hypertension Stroke Uncle Diabetes Grandmother Family history of colon cancer Other Family history of stomach cancer Social History Smoking Status: Never smoker Second Hand Exposure: No; Hx Alcohol Use: No Hx Substance Use: No Preferred Language: Mongolian Communication Ability: Effective Oracle Bpm Developer Required: No Beliefs That Will Affect Care: Druze Druze Beliefs: Tenriism marital status: Current Living Situation: Spouse Feels Safe at Home: Yes Assistive Devices: Denture - Upper, Denture - Lower and Walker Review of Systems Review of Systems: Negative x12 point review except as per HPI Physical Exam Constitutional: Additionally difficult to converse secondary to mental status. However, postprocedure converses normally and appears less ill. Eyes: PERRL, conjunctivae normal, anicteric sclerae ENMT: external ear and nose normal, oropharynx normal Neck: trachea midline, + short neck and + thick neck Respiratory: normal respiratory effort, lungs clear to auscultation (Arrived with facemask. Returned with nasal cannula at 2 L) Cardiovascular: Rate/Rhythm: + bradycardic Heart Sounds: normal S1, normal S2, + gallop (S4) and + murmur (Grade 1 out of 6 systolic) Gastrointestinal (Abdomen): normal bowel sounds, soft, nontender, no hepatosplenomegaly Skin: Initially alejandro/pale. Postprocedure pink. Neurologic: awake and + confused (Initially prior to procedure) Speech / Cognition: + abnormal speech (Resolved during procedure) Psychiatric: A+Ox3, euthymic affect Results & Data ([facility]) Vital Signs (Past 12 Hours) Vital Signs Temp Pulse Pulse Resp BP BP Pulse Ox 06/08/22 15:59 86 15 137/69 100 06/08/22 15:46 92 H 15 138/65 100 06/08/22 13:30 36.1 C L 80 20 103/52 L 100 06/08/22 13:30 103/52 L 06/08/22 13:25 80 18 109/65 99 06/08/22 13:15 80 22 93/54 L 99 06/08/22 13:03 80 20 90/54 L 100 06/08/22 12:15 06/08/22 12:47 80 15 92/52 L 100 06/08/22 12:45 80 14 76/51 L 99 06/08/22 12:35 80 15 105/47 L 99 06/08/22 12:30 80 18 98/51 L 99 06/08/22 12:28 80 18 106/46 L 99 06/08/22 12:26 80 23 106/54 L 98 06/08/22 12:21 80 16 127/66 98 06/08/22 12:15 83 19 124/52 L 98 06/08/22 12:14 80 24 119/56 L 96 06/08/22 12:00 80 19 137/55 L 97 06/08/22 10:20 160 H 32 H 100 06/08/22 10:16 31 L 14 100 06/08/22 10:15 43 L 27 H O2 Del Method O2 Flow Rate 06/08/22 15:59 Room Air 06/08/22 15:46 Room Air 06/08/22 13:30 06/08/22 13:30 06/08/22 13:25 Room Air 06/08/22 13:15 Room Air 06/08/22 13:03 Nasal Cannula 4 06/08/22 12:15 Nasal Cannula 4 06/08/22 12:47 Nasal Cannula 4 06/08/22 12:45 Nasal Cannula 4 06/08/22 12:35 Nasal Cannula 4 06/08/22 12:30 Nasal Cannula 4 06/08/22 12:28 Nasal Cannula 4 06/08/22 12:26 Nasal Cannula 4 06/08/22 12:21 Nasal Cannula 4 06/08/22 12:15 Nasal Cannula 4 06/08/22 12:14 Nasal Cannula 4 06/08/22 12:00 Nasal Cannula 4 06/08/22 10:20 06/08/22 10:16 06/08/22 10:15 PG Care Time/CCT Total # of Minutes Spent Total Time Spent with Patient: Total time spent is greater than 50% in coordination of care (as documented) at patient's floor/unit and/or counseling patient: [place] [address] Inpt Consult Level 5 Patient Type New Medical Decision Making High Complexity Diagnoses Dyslipidemia E78.5 Hypertension I10 Third degree heart block I44.2 CAD (coronary artery disease) I25.10
--- NOTE | 2022-06-08 17:07 | XCELERA ---
[id number]
[2022-06-08] MEDS: ALBUTEROL HFA 8 GM INHALER INH PRN (19:12)
--- NOTE | 2022-06-08 19:34 | Critical Care Consultation ---
Date of Consultation June 08, 2022 Assessment & Plan (1) Third degree heart block: Reason Critically Ill: 76-year-old female presenting with complete heart block status post permanent pacemaker placement. Patient had presented in complete heart block. She was initially taken to the catheterization suite where she underwent temporary pacer placement and was subsequently returned to the catheterization lab for permanent pacer placement. Since that procedure, the patient has been doing very well. We will continue to monitor from a cardiovascular standpoint status post intervention. A.m. chest x-ray had been ordered. Trend troponins. Insulin sliding scale coverage. Otherwise, patient is doing stable and will likely be stable to downgrade in the morning. Thank you for allowing us to participate in the care of this patient. Please refer to my attending physician's documentation for any further recommendations. History of Present Illness Attending Physician: Jose Manuel Sanchez MD, PhD History of Present Illness Patient is a 76-year-old female with a significant past medical history of diabetes, asthma, and degenerative joint disease who presented to the emergency department in complete heart block, patient was taken to the catheterization suite where a temporary pacer was placed. Patient was taken back to the lab and permanent pacemaker was placed. She is brought to the ICU for ongoing management status post intervention. Upon evaluation in the ICU, the patient is awake, alert, and oriented. She complains of some soreness at the incision site, but otherwise reports feeling much better than when she arrived. Specifically, the patient denies complaints of headaches, dizziness, lightheadedness, chest pain, palpitations, shortness of breath, pleuritic pain, nausea, vomiting, or abdominal discomfort. Allergies Allergy/AdvReac Type Severity Reaction Status Date / Time doxycycline Allergy Intermediate ASTHMA Verified 05/11/22 09:43 ATTACK, HIVES Sulfa (Sulfonamide Allergy Intermediate SWELLING Verified 05/11/22 09:43 Antibiotics) AND REDNESS, EYES SWELLED latex Allergy Mild SKIN Verified 05/11/22 09:43 IRRITATION-RASH atorvastatin AdvReac Mild Muscle Pain Verified 05/11/22 09:43 metformin AdvReac Mild Gastrointestinal Verified 05/11/22 09:43 Upset Home Medications Medication Instructions Recorded Confirmed Type albuterol sulfate 90 mcg/actuation 2 puffs inhalation Q6H PRN 04/26/19 05/11/22 Rx aerosol inhaler (ProAir HFA) shortness of breath or wheezing #6.7 grams BD Insulin Syringe Ultra-Fine 0.5 #100 ea 01/03/20 03/17/22 Rx mL 31 gauge x 5/16" (insulin syringe-needle U-100) lancets 32 gauge #300 ea 04/27/20 05/11/22 Rx blood sugar diagnostic (FreeStyle #400 ea 07/13/20 03/17/22 Rx Lite Strips) cholecalciferol (vitamin D3) 25 50 mcg PO QAM 08/30/21 05/11/22 History mcg (1,000 unit) capsule (Vitamin D3) cinnamon bark 500 mg capsule 2,000 mg PO QAM 08/30/21 05/11/22 History (Cinnamon) vitamin B complex 1 tab PO QAM 08/30/21 05/11/22 History insulin aspart U-100 100 unit/mL 0 unit subcut UD 09/02/21 05/11/22 History (3 mL) subcutaneous pen (Novolog Flexpen U-100 Insulin aspart) flash glucose sensor (FreeStyle #1 ea 10/21/21 05/11/22 Rx Devi 2 Sensor kit) lisinopril 10 mg tablet 10 mg PO QAM 12/02/21 05/11/22 History metoprolol succinate 25 mg 25 mg PO QAM 12/02/21 05/11/22 History tablet,extended release 24 hr pen needle, diabetic 31 gauge x #360 ea 12/02/21 05/11/22 Rx 3/16" (BD Ultra-Fine Mini Pen Needle) insulin glargine 100 unit/mL (3 38 unit subcut QA 01/14/22 05/11/22 History mL) subcutaneous pen (Basaglar KwikPen U-100 Insulin) omalizumab 150 mg subcutaneous 300 mg subcut Q4WK #1 ea 02/02/22 05/11/22 Rx solution (Xolair) tramadol 50 mg tablet 25 mg PO Q8H PRN pain #30 tabs 03/07/22 05/11/22 Rx acetaminophen 500 mg tablet 1,000 mg PO Q6H PRN Pain 04/27/22 05/11/22 History cranberry concentrate-ascorbic 2 cap PO QAM 04/27/22 05/11/22 History acid 420 mg-100 mg capsule rosuvastatin 10 mg tablet (Crestor) 10 mg PO QAM 04/27/22 05/11/22 History Metamucil 05/02/22 05/11/22 History diphenoxylate-atropine 2.5 tab PRN Diarrhea 05/02/22 05/11/22 History mg-0.025 mg tablet (Lomotil) Compound Pain Cream topical PRN 05/11/22 History aspirin 81 mg tablet,delayed 81 mg PO DAILY #30 tabs 05/11/22 05/11/22 Rx release Patient History Medical History Aortic valve sclerosis follows with [facility], last echo 08/18/21 Asthma controlled, stable per pt-last rescue inhaler use several months ago Bifascicular block CAD (coronary artery disease) [place] [facility] [place] Mid LAD 40%. D1 ostial/proximal 60%. Ostial OM1 70%. Small RCA. Proximal RCA 40%. Mid RCA 50%. EF 65%-no stents, follows with [facility] CAD (coronary artery disease) Cardiac murmur slight systolic murmur noted on 05/02/22 PAT exam; sclerotic aortic valve without sig stenosis per 08/18/21 echo Carotid bruit none heard on exam at 05/02/22 PAT appt; pt denies carotid ultrasound Chronic idiopathic urticaria follows with [facility] COVID-19 HX AUG AND - MONOCLONAL ANTIBODY TX; hospitalized day #14 of covid for severe UTI, "not for covid" Dyslipidemia Eczema History of anesthesia reaction "RASH, SWELLING, HIVES" AFTER L breast lumpectomy 2009-pt states is very sensitive to many medications, follows with [facility] History of blood transfusion in teenage years d/t menorrhagia Hx of eye disorder "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, currently being monitored by my retina specialist in [place]" Hypertension controlled, stable per pt IBS (irritable bowel syndrome) Mild concentric left ventricular hypertrophy (LVH) Obstructive airway disease asthma per pt Pulmonary hypertension mild per 08/2021 echo, RVSP 39 mmHg Pulmonary nodules 6 mm nodule LLL, slight increase in a 12 mm branching tubular structure RLL-[address] recommended per report for stability assessment of nodules and lymphadenopathy Type 2 diabetes mellitus IDDM Surgical History History of cardiac cath [place] [facility] [place]: Mid LAD 40%. D1 ostial/proximal 60%. Ostial OM1 70%. Small RCA. Proximal RCA 40%. Mid RCA 50%. EF 65%. No or MR. PCWP 16. PA pressure 32/16 with a mean of 21. PVR 1.1. Cardiac index 2.4. LVEDP 18. "medical therapy was recommended" History of cataract surgery RT History of cholecystectomy History of colonoscopy History of lumpectomy BREAST, MULTIPLE TIMES - BENIGN Hx of arthroscopic knee surgery Lt. Family History Father Diabetes Coronary heart disease Bronchitis Asthma Mother Coronary heart disease Arthritis Cancer Hypertension Stroke Uncle Diabetes Grandmother Family history of colon cancer Other Family history of stomach cancer Social History Smoking Status: Never smoker Second Hand Exposure: No; Hx Alcohol Use: No Hx Substance Use: No Preferred Language: Samoan Communication Ability: Effective In Flight Crew Member Required: No Beliefs That Will Affect Care: Yazdanism Yazdanism Beliefs: Pentecostal marital status: Current Living Situation: Spouse Feels Safe at Home: Yes Assistive Devices: Denture - Upper, Denture - Lower and Walker Review of Systems Review of Systems: A complete 10 point review of systems was reviewed with the patient with pertinent positives and negatives as per history of present illness. All else were negative. Physical Exam Physical Exam: VITAL SIGNS - Vital signs and nursing notes were reviewed. GENERAL - 76-year-old female appearing her stated age who is in no acute distress. Communicates well with provider and answers questions appropriately. HEAD - NC/AT. EYES - PERRL with EOMI bilaterally. Sclera anicteric. EARS - No deformities of external structures noted on gross examination bilaterally. NOSE - Midline and without cyanosis. MOUTH/OROPHARYNX - Without perioral cyanosis. NECK - Neck with FROM. LUNGS - Incision site to the LEFT chest clean, dry, and intact. Chest wall symmetric without accessory muscle use, intercostals retractions, or central cyanosis. Normal vesicular breath sounds CTA B/L. Faint inspiratory wheezes noted throughout lung peña. CARDIAC - RRR with S1/S2. No murmur, rubs, or gallops appreciated. No reproducible tenderness to palpation appreciated over the anterior chest wall. ABDOMEN - Abdominal contour obese without pulsations or visible masses. BS normoactive all four quadrants. No tenderness, palpable masses, hepatosplenomegaly, or ascites noted. EXTREMITIES - No clubbing or peripheral cyanosis. No pretibial edema present. +3/5 radial and dorsalis pedis pulses palpated throughout. +5/5 strength noted in UE/LE bilaterally. NEUROLOGIC - Cranial nerves II through XII grossly intact. PSYCH - A&Ox3 and cooperates fully with examiner. Pt is very pleasant and interacts well with examiner. Results & Data Results & Data ([facility]) Vital Signs (Past 12 Hours) Vital Signs Temp Pulse Pulse Resp BP BP Pulse Ox 06/08/22 19:15 72 18 99 06/08/22 17:15 36.7 C 76 18 123/64 99 06/08/22 17:04 36.8 C 78 16 117/66 100 06/08/22 17:00 36.9 C 75 18 88/47 L 95 06/08/22 16:55 36.8 C 79 17 118/46 L 100 06/08/22 16:30 36.8 C 84 15 119/72 98 06/08/22 16:24 36.7 C 87 22 113/64 100 06/08/22 16:25 83 06/08/22 15:59 86 15 137/69 100 06/08/22 15:46 92 H 15 138/65 100 06/08/22 13:30 36.1 C L 80 20 103/52 L 100 06/08/22 13:30 103/52 L 06/08/22 13:25 80 18 109/65 99 06/08/22 13:15 80 22 93/54 L 99 06/08/22 13:03 80 20 90/54 L 100 06/08/22 12:15 06/08/22 12:47 80 15 92/52 L 100 06/08/22 12:45 80 14 76/51 L 99 06/08/22 12:35 80 15 105/47 L 99 06/08/22 12:30 80 18 98/51 L 99 06/08/22 12:28 80 18 106/46 L 99 06/08/22 12:26 80 23 106/54 L 98 06/08/22 12:21 80 16 127/66 98 06/08/22 12:15 83 19 124/52 L 98 06/08/22 12:14 80 24 119/56 L 96 06/08/22 12:00 80 19 137/55 L 97 06/08/22 10:20 160 H 32 H 100 06/08/22 10:16 31 L 14 100 06/08/22 10:15 43 L 27 H O2 Del Method O2 Flow Rate 06/08/22 19:15 Room Air 06/08/22 17:15 Room Air 06/08/22 17:04 Room Air 06/08/22 17:00 Room Air 06/08/22 16:55 Room Air 06/08/22 16:30 Room Air 06/08/22 16:24 Room Air 06/08/22 16:25 06/08/22 15:59 Room Air 06/08/22 15:46 Room Air 06/08/22 13:30 06/08/22 13:30 06/08/22 13:25 Room Air 06/08/22 13:15 Room Air 06/08/22 13:03 Nasal Cannula 4 06/08/22 12:15 Nasal Cannula 4 06/08/22 12:47 Nasal Cannula 4 06/08/22 12:45 Nasal Cannula 4 06/08/22 12:35 Nasal Cannula 4 06/08/22 12:30 Nasal Cannula 4 06/08/22 12:28 Nasal Cannula 4 06/08/22 12:26 Nasal Cannula 4 06/08/22 12:21 Nasal Cannula 4 06/08/22 12:15 Nasal Cannula 4 06/08/22 12:14 Nasal Cannula 4 06/08/22 12:00 Nasal Cannula 4 06/08/22 10:20 06/08/22 10:16 06/08/22 10:15 Coding Level of Care Code 33136 Inpt Consult Level 3 Diagnoses Third degree heart block I44.2 Time Spent (min) 32
[2022-06-08] MEDS: ACETAMINOPHEN 325 MG TAB PO PRN (20:42)
[2022-06-08] MEDS: ceFAZolin 1000MG 1,000 MG/7.5 ML SYR IV SCH (22:47)
[2022-06-09] MEDS: ALBUTEROL HFA 8 GM INHALER INH PRN (03:06)
[2022-06-09 06:12] LABS: Hematocrit (blood only) 33.2 % (34.1-44.9); Hemoglobin 10.8 g/dl (12.0-16.0); Mean Corpuscular Hemoglobin 29.3 pg (25.0-34.0); Mean Corpuscular Hgb Conc 32.5 g/dL (32.0-36.0); Mean Corpuscular Volume 90.2 fL (80.0-100.0); Mean Platelet Volume 10.1 fL (9.4-12.3); Platelet Count 194 K/uL (130-400); RDW Standard Deviation 42.5 fL (36.4-46.3); Red Blood Count 3.68 M/uL (3.93-5.22); White Blood Count 8.67 K/ul (4.8-10.8)
[2022-06-09] MEDS: ceFAZolin 1000MG 1,000 MG/7.5 ML SYR IV SCH (06:17)
[2022-06-09] MEDS: ACETAMINOPHEN 325 MG TAB PO PRN ×2 (06:17→10:28)
[2022-06-09 06:37] LABS: Creatinine Clr Calc Pharmacy 61.8 ml/min; Est GFR (African American) 81.8 ml/min; Est GFR (Non-African American) 70.6 ml/min; Magnesium 1.7 mg/dl (1.7-2.4); Phosphorus 3.9 mg/dl (2.5-4.9); Potassium 4.2 mmol/L (3.5-5.1)
[2022-06-09 07:22] LABS: Prothrombin Time 10.9 Seconds (9.0-12.0)
[2022-06-09] MEDS: INSULIN ASPART PER UNIT SC SCH ×2 (07:40→11:56)
--- NOTE | 2022-06-09 08:14 | XRay Report ---
XR chest 2V PA/lateral HISTORY: 76 years-old Female EXACT TIME ORDERED Evaluate for pneumothorax and l status post placemen t of a left-sided pacer COMPARISON: Chest radiograph 06/08/2022 TECHNIQUE: AP view of the chest FINDINGS: Left subclavian pacer. The cardiac silhouette is upper limits of normal in size. No pneumothorax, ple ural effusion or overt pulmonary edema. Mild linear subsegmental left basilar atelectasis. The bones appear grossly intact. Healed chronic right-sided rib fractures. IMPRESSION: Status post placement of a left subclavian pacer. No postprocedural pneumothorax identifi ed. ACT 112: Negative or not required by law. The above report was generated using voice recognition software. It may contain grammatical, syntax o r spelling errors. Electronically signed by: Zeb Griffin M.D. 06/09/2022 8:11 AM
[2022-06-09] MEDS ORDERED: ROSUVASTATIN CALCIUM 10 MG TAB PO SCH (09:00)
[2022-06-09] MEDS ORDERED: LANTUS PER UNIT CHARGE SQ SCH (09:00)
[2022-06-09] MEDS ORDERED: ROSUVASTATIN CALCIUM 10 MG TAB PO STA (09:34)
--- NOTE | 2022-06-09 09:38 | Critical Care Progress Note ---
Date of Service June 09, 2022 Assessment & Plan Admission and Anticipated Discharge Date Admission Date: June 08, 2022 Results & Data Results & Data ([facility]) Vital Signs (Past 12 Hours) Vital Signs Temp Pulse Pulse Resp BP Pulse Ox O2 Del Method 06/09/22 08:00 75 06/09/22 07:05 36.8 C 06/09/22 06:00 36.9 C 75 19 125/59 L 94 Room Air 06/09/22 05:00 36.9 C 78 21 122/47 L 94 Mechanical Vent 06/09/22 04:00 36.9 C 81 24 128/52 L 97 Mechanical Vent 06/09/22 03:00 37.0 C 77 20 120/50 L 97 Room Air 06/09/22 02:00 37.3 C 66 17 123/43 L 99 Nasal Cannula 06/09/22 01:00 37.7 C H 72 18 114/48 L 97 Nasal Cannula 06/09/22 00:00 37.9 C H 78 20 108/52 L 98 Nasal Cannula 06/08/22 23:00 38.0 C H 81 21 117/47 L 97 Oxymask 06/08/22 22:30 38.1 C H 82 19 110/47 L 93 Room Air 06/09/22 03:08 81 18 98 Room Air 06/09/22 00:00 77 06/08/22 22:00 38.1 C H 80 20 97/43 L 94 Room Air O2 Flow Rate FiO2 06/09/22 08:00 06/09/22 07:05 06/09/22 06:00 06/09/22 05:00 30 06/09/22 04:00 30 06/09/22 03:00 06/09/22 02:00 2 06/09/22 01:00 2 06/09/22 00:00 2 06/08/22 23:00 2 06/08/22 22:30 06/09/22 03:08 06/09/22 00:00 06/08/22 22:00 Coding
[2022-06-09] MEDS ORDERED: lisinopril 10 MG TAB PO SCH (09:45)
--- NOTE | 2022-06-09 10:09 | Electrocardiogram Report ---
Test Reason : Blood Pressure : / mmHG Vent. Rate : 049 BPM Atrial Rate : 288 BPM P-R Int : 000 ms QRS Dur : 132 ms QT Int : 440 ms P-R-T Axes : 000 -56 -07 degrees QTc Int : 397 ms Poor data quality, interpretation may be adversely affected Junctional bradycardia Left axis deviation Left ventricular hypertrophy with QRS widening Right bundle branch block Inferior infarct , age undetermined Anterolateral infarct , age undetermined Abnormal ECG When compared with ECG of 14-JAN-2022 07:34, Junctional bradycardia has replaced Sinus rhythm Confirmed by Rafi Cunningham ([id number]) on 06/09/2022 10:09:32 AM Referred By: REFERRED SELF Confirmed By:Rafi Cunningham
--- NOTE | 2022-06-09 13:07 | Electrocardiogram Report ---
Test Reason : Blood Pressure : / mmHG Vent. Rate : 073 BPM Atrial Rate : 073 BPM P-R Int : 200 ms QRS Dur : 104 ms QT Int : 420 ms P-R-T Axes : 078 003 -45 degrees QTc Int : 462 ms Atrial-sensed ventricular-paced rhythm Abnormal ECG When compared with ECG of 08-JUN-2022 10:24, Ventricular pacing is now present Vent. rate has increased BY 24 BPM Confirmed by Rafi Cunningham ([id number]) on 06/09/2022 1:06:28 PM Referred By: REFERRED SELF Confirmed By:Rafi Cunningham
--- NOTE | 2022-06-09 13:44 | Discharge Summary ---
Date of Service June 09, 2022 Admission HPI Per Admitting Provider Adeline is a 76 year old female with a PMH significant for aortic valve sclerosis, bifascicular heart block, CAD, dyslipidemia, HTN, pulmonary HTN with pulmonary nodules, and DM II who presented to the [facility] ED via EMS. Prior to EMS arrival they alerted the ED that the patient had a syncopal episode and was found to be in complete heart block. EMS gave the patient atropine prior to arrival and the patient was taken emergently to the quality control lab tech for placement of transvenous pacemaker. Per the post-procedure report, the patient was placed on Dopamine during the procedure at 15 mcg/kg per min for blood pressure support. Patient was seen after pacemaker placement in the ICU, she was resting in bed in no acute distress. She states that she was in her normal state of health this am and does remember losing consciousness. She states that at the present time she is feeling "crummy", she elaborated by saying that she is having nausea and generally feeling unwell. She is completely alert and oriented at the time of the exam. Upon inspection of her transvenous pacer box her rate is currently set to 80 with an MA of 10, currently set to VVI and firing/capturing adequately. Principal Diagnosis Complete heart block Discharge Exam at the time of discharge patient is alert and oriented. Normal respiratory effort Regular cardiac rhythm with systolic ejection murmur Evaluation the device implant site did not reveal any hematoma. No significant erythema or ecchymosis. No drainage. No lower extremity edema Discharge Data Allergies Allergy/AdvReac Type Severity Reaction Status Date / Time doxycycline Allergy Intermediate ASTHMA Verified 05/11/22 09:43 ATTACK, HIVES Sulfa (Sulfonamide Allergy Intermediate SWELLING Verified 05/11/22 09:43 Antibiotics) AND REDNESS, EYES SWELLED latex Allergy Mild SKIN Verified 05/11/22 09:43 IRRITATION-RASH atorvastatin AdvReac Mild Muscle Pain Verified 05/11/22 09:43 metformin AdvReac Mild Gastrointestinal Verified 05/11/22 09:43 Upset Consultations 06/08/22 11:05 ED Decision to Admit Stat 06/08/22 12:11 Consult Cardiology Routine Consult Information Security Consultant Routine Procedures Performed Operation Date: 06/08/22 10:45 Actual Procedures s Cineradiography w/Routine Exam - Jose Manuel Sanchez MD, PhD s Ins/RemTemporary Transvenous Pacer - Jose Manuel Sanchez MD, PhD s Ultrasound Vascular Access - Jose Manuel Sanchez MD, PhD s Placement Art Occlusive Device - Jose Manuel Sanchez MD, PhD p Cath, Coronaries ONLY (no LV) - Jose Manuel Sanchez MD, PhD p Temporary Transcutaneous Pacing - Jose Manuel Sanchez MD, PhD Operation Date: 06/08/22 13:30 Actual Procedures p Pacer with A/V Leads (Dual)(Left) - Armond James MD s Insert/Replace Temorary Pacemaker - Armond James MD Coronary angiography: Left main: Large-caliber vessel which trifurcates into LAD, left circumflex, and ramus intermedius. Mild distal calcification and mild luminal irregularities. LAD: Large caliber and transapical vessel. Provides several large septal branches, a large caliber branching first diagonal, and a small to medium caliber branching second diagonal. Proximal and early mid LAD have mild diffuse calcification. There is also mild disease less than 20% narrowing in the midsegment. The remainder of the LAD and its branches have no more than mild luminal irregularities. LCx: Large caliber and codominant vessel. Travels in the AV groove where the proximal segment has diffuse mild disease of less than 30% narrowing. First obtuse marginal branch is large with multi branches. It has diffuse mild disease. Mid circumflex has large caliber in the AV groove with mild disease. Provides an atrial branch and then a small caliber second obtuse marginal. In the early distal AV groove circumflex has a focal 40 to 50% narrowing. The vessel continues beyond this terminating in a bifurcating PDA which is relatively small in caliber. There is diffuse mild disease. RCA: Medium to large caliber and codominant. Provides several large RV marginal branches. Bifurcates distally into a large caliber PDA and a small to medium caliber branching posterior lateral. The ostium of the PDA has a focal 40% stenosis. The remainder of the RCA and its branches have diffuse mild disease. Echocardiogram performed 06/08/2022: Normal LV systolic function with ejection fraction 55-60%. Aortic valve sclerosis without significant stenosis. Mild mitral regurgitation. No pericardial effusion. Ordered Studies 06/08/22 10:17 CL Cath Imgs for PACS use only Stat 06/08/22 14:00 EP Lab Images for PACS ONCE 06/08/22 14:21 CL Cath Imgs for PACS use only Stat Hospital Course (1) Dyslipidemia: Patient with diabetes which makes her high risk. Aggressive LDL reduction is recommended per current guidelines. High intensity statin therapy with Crestor 10 mg daily should continue. (2) Hypertension: Blood pressure is well controlled at present. He is on a low-dose beta-comfort (metoprolol succinate ER 25 mg daily) and has tolerated this despite her asthma. We agreed that this should continue at current dose and there will be no risk of bradycardia after pacemaker implantation. Also continue lisinopril for blood pressure and renal plus cardiac protection in diabetic. (3) Third degree heart block: Patient previously with bifascicular block now evidence that progressive conduction system disease leading to third-degree AV block. Cardiac cath did not suggest myocardial ischemia as etiology of high-grade AV block. Similarly, Lyme screen does not suggest bradycardia reversible by treatment of Lyme disease. dual-chamber [employer] pacemaker implanted on the day of admission. Interrogation performed at the time of discharge revealed normal device function. Chest x-ray did not demonstrate any complication. (4) CAD (coronary artery disease): Mild nonocclusive coronary disease on catheterization. Prior catheterization in 2011 at [facility] suggested severe small branch disease not amenable to PCI. We will continue with guideline directed medical therapy for secondary prevention of coronary disease including low-dose aspirin, high intensity statin therapy, beta-comfort, and DAFNE inhibitor at current doses. Total Time Total Time Spent Total Time Spent (In Minutes): 25 Discharge Plan Discharge Items Patient Disposition: Home - Self-Care Reason For Visit: COMPLETE HEART BLOCK Discharge Diagnosis: Complete heart block, syncope Condition on Discharge: Good Activity: Per Instructions section Activity Comment: no lifting left arm above the shoulder behind the neck for 6 weeks Lifting: No more than 10 pounds Lifting Comment: no more than 10 lb for 1 week Bathing: Keep incision dry Bathing Comment: keep wound dry and Steri-Strips intact until follow-up in our clinic Exercise/Sports: Gradually increase as tolerated Driving/Machine Use: Resume 3 days after discharge Non-emergency contact: Resident Doctor Call non-emergency contact if: you have any medication questions, your symptoms worsen, your pain is not controlled, you have a fever, your wound has increased redness and your wound has increased drainage Follow-up/Referrals: Kaylee Osorio DO [Primary Care Provider] - Diet: Carb Consistent or DM2 Addtl Attending Provider Instructions: home health will be arranged as recommended Pending Studies at Discharge: No Stand-Alone Forms: My [facility], Smoking Cessation Medications and DC Order Prescriptions: Continued albuterol sulfate [ProAir HFA] 90 mcg/actuation HFA aerosol inhaler 2 puffs INH Q6H PRN (Reason: shortness of breath or wheezing) Qty: 6.7 0RF (DME) insulin syringe-needle U-100 [BD Insulin Syringe Ultra-Fine] 0.5 mL 31 gauge x 5/16" syringe See Rx Instructions .ROUTE .MEDSUPPLY Qty: 100 3RF Rx Instructions: use once daily (DME) lancets 32 gauge misc See Rx Instructions .ROUTE .MEDSUPPLY Qty: 300 3RF Rx Instructions: test 3 times daily for use with freestyle lancing device (DME) FreeStyle Lite Strips Strip See Dose Instructions .ROUTE .MEDSUPPLY Qty: 400 3RF Dose Instruction: As directed Rx Instructions: test blood sugar 4 x daily (DME) FreeStyle Devi 2 Sensor Kit See Rx Instructions .Route Qty: 1 5RF Rx Instructions: Change every 14 days (DME) pen needle, diabetic [BD Ultra-Fine Mini Pen Needle] 31 gauge x 3/16" needle See Rx Instructions .ROUTE .MEDSUPPLY Qty: 360 3RF Rx Instructions: Use for injections four times daily tramadol 50 mg tablet 25 mg PO Q8H PRN (Reason: pain) Qty: 30 0RF Rx Instructions: take 1/2 tab every 8 hours for pain PRN Xolair 150 mg recon soln 300 mg SQ Q4WK Qty: 1 0RF Rx Instructions: Buy and Bill No PA required Compound Pain Cream topical PRN aspirin 81 mg tablet,delayed release (DR/EC) 81 mg PO DAILY Qty: 30 2RF vitamin B complex Tablet 1 tab PO QAM Label Comments: B SUPER COMPLEX cholecalciferol (vitamin D3) [Vitamin D3] 25 mcg (1,000 unit) Capsule 50 mcg PO QAM cinnamon bark [Cinnamon] 500 mg Capsule 2,000 mg PO QAM insulin aspart U-100 [Novolog Flexpen U-100 Insulin] 100 unit/mL (3 mL) insulin pen 0 unit SQ UD Label Comments: 15-20 UNITS A DAY Rx Instructions: Inject per sliding scale; TDD 12 units lisinopril 10 mg tablet 10 mg PO QAM metoprolol succinate 25 mg tablet extended release 24 hr 25 mg PO QAM insulin glargine [Basaglar KwikPen U-100 Insulin] 100 unit/mL (3 mL) insulin pen 38 unit SQ QAM MDD 50 acetaminophen 500 mg Tablet 1,000 mg PO Q6H PRN (Reason: Pain) rosuvastatin [Crestor] 10 mg Tablet 10 mg PO QAM cranberry conc-ascorbic acid 420-100 mg Capsule 2 cap PO QAM diphenoxylate-atropine [Lomotil] 2.5-0.025 mg Tablet PRN (Reason: Diarrhea) Metamucil Discharge Orders: Discharge Order (Routine); Ordered 06/09/22 Ordered By: Armond James Admission Data Admit Date/Time: 06/08/22 11:32 Attending Provider: Clive Bill Admit Provider: Walter Ha Primary Care Provider: Kaylee Osorio Other Providers: Walter Ha ; Umair Good ; Jose Cox Coding Level of Care Code D/C DAY MANAGEMENT <30 MINS Diagnoses Dyslipidemia E78.5 Hypertension I10 Third degree heart block I44.2 CAD (coronary artery disease) I25.10
--- NOTE | 2022-06-09 13:58 | Electrocardiogram Report ---
Test Reason : Blood Pressure : / mmHG Vent. Rate : 078 BPM Atrial Rate : 078 BPM P-R Int : 192 ms QRS Dur : 118 ms QT Int : 412 ms P-R-T Axes : 024 -10 -52 degrees QTc Int : 469 ms Atrial-sensed ventricular-paced rhythm Abnormal ECG When compared with ECG of 08-JUN-2022 16:58, Vent. rate has increased BY 5 BPM Confirmed by Rafi Cunningham ([id number]) on 06/09/2022 1:57:43 PM Referred By: REFERRED SELF Confirmed By:Rafi Cunningham
[2022-06-10] MEDS ORDERED: ROSUVASTATIN CALCIUM 20 MG TAB PO SCH (09:00)
== END 2022-06-09 14:50 | disposition home or self-care (01) | DRG 244 ==
LOC: ED 10:09 → CC 10:30 → 1E 10:55 → SUATTDRO 11:32
PROC: CLB.CCO (2022-06-08 10:45)
PROC: CLB.TTP (2022-06-08 10:45)